=== PATIENT | female | born 1945 | race Caucasian/White ===

== ENCOUNTER → 2017-10-03 08:49 | Outpatient (CLI) | payer MEDICARE, SELFPAY ==
--- NOTE | 2017-10-03 08:58 | AAVD_ITS ---
Reason For Study: atheroscrlerosis Aorta Measurements Aorta Doppler Measurements Proximal aorta measures1.06 x 1.18cm. in cross- Peak systolic flow velocities within the proximal sectional axis. aorta measure 81.2 cm/sec. Proximal aorta measures1.06cm. in longitudinal Peak systolic flow velocities within the mid axis. aorta measure 93.0 cm/sec. Mid aorta measures1.36 x 1.41cm. in cross- Peak systolic flow velocities within the distal sectional axis. aorta measure 109 cm/sec. Mid aorta measures1.41cm. in longitudinal axis. Distal aorta measures1.38 x 1.36cm. in cross- sectional axis. Distal aorta measures1.41cm. in longitudinal axis. Left Iliac Artery Peak systolic velocity in the left iliac artery measures 188 cm/sec. Left iliac artery measures .560 x .579 cm. in the cross-sectional axis. Left iliac artery measures .554 cm. in the longitudinal axis. Right Iliac Artery Peak systolic velocity in the right iliac artery measures 403 cm/sec. Right iliac artery measures .678 cm. in the longitudinal axis. Right iliac artery measures .600 x .620 cm. in the cross-sectional axis. Procedure The exam was diagnostic. Exam performed in department. Interpretation Summary 1. Severe right common iliac stenosis. 2. Otherwise aortoiliac systemt patent. Ordering Physician: Ole Arauz Performed By: Robert Cortés RVDinah
--- NOTE | 2017-10-03 08:58 | CDU_ITS ---
Reason For Study: carotid stenosis Rt. Velocities/BP Lt. Velocities/BP Prox CCA 73.9/15.8 cm/sec. Prox CCA 108/25.1 cm/sec. Mid CCA 65.7/19.3 cm/sec. Mid CCA 98.2/25.9 cm/sec. Dist CCA 69.2/21.7 cm/sec. Dist CCA 127/37.7 cm/sec. Prox ICA 548/209 cm/sec. Prox ICA 198/52.1 cm/sec. Mid ICA 239/82.3 cm/sec. Mid ICA 244/70.7 cm/sec. Dist ICA 93.5/25.1 cm/sec. Dist ICA 109/30.9 cm/sec. Rt. ICA/CCA = 8.3. Lt. ICA/CCA = 2.5. Prox ECA 279/48.6 cm/sec. Prox ECA 103/10.2 cm/sec. Rt. Vert. 51.1/14.1 cm/sec. Lt. Vert. 57.5/15.8 cm/sec. Right Extracranial There is heterogeneous, irregular atherosclerotic plaque noted in the right common carotid artery. There is heterogeneous, irregular atherosclerotic plaque noted in the right internal carotid artery. There is heterogeneous, irregular atherosclerotic plaque noted in the right external carotid artery. Antegrade flow is noted in the right vertebral artery. Left Extracranial There is heterogeneous, irregular atherosclerotic plaque noted in the left common carotid artery. There is heterogeneous, irregular atherosclerotic plaque noted in the left internal carotid artery. There is heterogeneous, irregular atherosclerotic plaque noted in the left external carotid artery. Antegrade flow is noted in the left vertebral artery. Procedure Carotid Duplex [id number]. The exam was diagnostic. Exam performed in department. Interpretation Summary Severe (>70%) stenosis right extracranial internal carotid. Moderate (50-69%) stenosis left extracranial internal carotid. Flow within the vertebral arteries is antegrade bilaterally. Ordering Physician: Ole Arauz Performed By: Robert Cortés RVT
--- NOTE | 2017-10-03 08:58 | ADU_ITS ---
Reason For Study: atherosclerosis Right Velocities Left Velocities Common Femoral Artery, mid = 194 cm./sec. Common Femoral Artery, mid = 149 cm./sec. Profunda Femoral Artery = 187 cm./sec. Supf. Femoral Artery, prox = 101 cm./sec. Popliteal Artery, mid = 45.6 cm./sec. Supf. Femoral Artery, dist = 50.1 cm./sec. Post. Tibial Artery, prox = 22.3 cm./sec. Profunda Femoral Artery = 102 cm./sec. Post. Tibial Artery, mid = 18.8 cm./sec. Popliteal Artery, mid = 52.1 cm./sec. Post. Tibial Artery, dist = 18.8 cm./sec. Post. Tibial Artery, prox = 36.3 cm./sec. Ant. Tibial Artery, prox = 17.6 cm./sec. Post Tibial Artery, mid = 37.3 cm./sec. Ant. Tibial Artery, mid = 36.9 cm./sec. Post Tibial Artery, dist. = 32.4 cm./sec. Ant. Tibial Artery, dist = 23.5 cm./sec. Peroneal Artery, mid = 30.4 cm./sec. Unable to demonstrate flow in the SFA and PeronalPeroneal Artery,dist. = 20.6 cm./sec. A. Ant.Tibial Artery, prox = 45.2 cm./sec. Ant Tibial Artery, mid = 51.1 cm./sec. Ant. Tibial Artery, distal = 51.1 cm./sec. Unable to demonstrate flow in the mid SFA. Procedure The exam was diagnostic. Exam performed in department. Interpretation Summary 1. Bilateral SFA occlussion. 2.. Right FIELD MECHANIC biphasic flow and triphasic left FIELD MECHANIC. Ordering Physician: Ole Arauz Performed By: Robert Cortés RVT
--- NOTE | 2017-10-04 11:31 | LEAS ---
Arterial Study - Arterial Study Arterial Study: Echo record number: [id number] next Date of scan 10/03/[address] Ole Arauz History: Patient with known peripheral vascular disease with claudication. Previous endarterectomy and iliac stenting. Interpretation: Right lower extremity pulsatile flow noted at the ankle duplex showing monophasic flow both vessels with an MATI 0.52 and 0.49. Next Left lower extremity with pulsatile flow noted at the ankle duplex showing biphasic flow the posterior tibial with an MATI 0.64 monophasic flow in the dorsalis pedis with an MATI 0.57 Impression: 1. Right lower extremity moderate arterial occlusive disease with an MATI 0.52 2. Left lower extremity with moderate arterial occlusive disease with an MATI 0.64
== END ==
PROVIDERS: Family Provider Family Medicine; PCP Family Medicine; Visit Provider Surgery Vascular Surgery
DX: I70.213 Atherosclerosis of native arteries of extremities with intermittent claudication, bilateral legs (principal); I74.09 Other arterial embolism and thrombosis of abdominal aorta; I65.23 Occlusion and stenosis of bilateral carotid arteries; M79.89 Other specified soft tissue disorders; E66.9 Obesity, unspecified; Z87.891 Personal history of nicotine dependence; I25.2 Old myocardial infarction; I10 Essential (primary) hypertension; E07.9 Disorder of thyroid, unspecified; M19.90 Unspecified osteoarthritis, unspecified site
CPT/HCPCS: 93880; 93922; 93925; 93978

== ENCOUNTER → 2017-10-16 12:38 | Outpatient (CLI) | payer MEDICARE, SELFPAY ==
--- NOTE | 2017-10-16 12:43 | CT_ITS ---
STUDY: CTA NECK WITH CONTRAST REASON FOR EXAM: Female, 72 years old. Carotid stenosis follow-up. RADIATION DOSAGE (If Supplied By Facility): CTDIvol = ( ) mGy, DLP = ( ) mGycm TECHNIQUE: CT angiography with multi-detector data acquisition was performed from the aortic arch to the skull base following intravenous administration of 100 ml of Isovue 370 contrast. MIP images were reconstructed from the axial data set. Post-processing of the angiographic images was performed, with multiplanar reformation and 3D reconstruction. Individualized dose optimization techniques were used for this CT. COMPARISON: CTA carotid arteries September 09, 2016. FINDINGS: There is a complex 1.8 x 1.45 x 1.3 cm heterogeneous lesion with eccentric focal calcifications in the inferior left lobe of the thyroid gland. AORTIC ARCH: There is atherosclerotic calcific plaque formation of the aortic arch and great vessels arising from the aortic arch, without a hemodynamically significant stenosis. There is a normal origin of the brachiocephalic, left common carotid, and left subclavian arteries. There is a calcification also seen at the ostium of the right subclavian artery. RIGHT CAROTID ARTERIES: There is atherosclerotic plaque formation of the common carotid artery, but without a hemodynamically significant stenosis. There is extensive atherosclerotic plaque formation with severe narrowing of the right carotid bulb with a hemodynamically significant stenosis. There is extensive atherosclerotic plaque formation of the origin of the right internal carotid artery with an estimated stenosis of greater than 70%. Normal visualized cervical portion of the right internal carotid artery. There is noncalcified atherosclerotic plaque formation of the origin of the right external carotid artery with an estimated stenosis of greater than 70%. LEFT CAROTID ARTERIES: There is atherosclerotic plaque formation of the common carotid artery, but without a hemodynamically significant stenosis. There is moderate atherosclerotic plaque formation with moderate narrowing of the carotid bulb. There is moderate atherosclerotic plaque formation of the origin of the left internal carotid artery with an estimated stenosis of 50-69% stenosis. There is mild tortuous elongation of the cervical portion of the left internal carotid artery. There is mixed atherosclerotic plaque formation of the origin of the left external carotid artery with an estimated stenosis of greater than 70%. VERTEBRAL ARTERIES: Mild ostial atherosclerotic narrowing of the right vertebral artery. There is moderate tortuosity of the proximal left vertebral artery with some kinking, but no significant stenosis. The right vertebral artery is smaller caliber than the left, but the cervical segments of these vessels are otherwise widely patent CT/CTA Neck W/WO Contrast IMPRESSION: 1. Greater than 70% diameter calcific atherosclerotic stenosis of the right internal carotid artery origin is unchanged. 2. 50-69% diameter calcific atherosclerotic stenosis of the left internal carotid artery origin also unchanged. 3. No significant vertebral artery stenosis. Electronically Signed: Moiz Londono MD at 16:17 EDT , Service support ,
== END ==
PROVIDERS: Family Provider Family Medicine; PCP Family Medicine; Visit Provider Surgery Vascular Surgery
DX: I65.23 Occlusion and stenosis of bilateral carotid arteries (principal)
CPT/HCPCS: 70498; Q9967

== ENCOUNTER → 2018-11-22 | Outpatient (CLI) | payer MEDICARE, SELFPAY ==
--- NOTE | 2018-11-22 09:52 | AAVD_ITS ---
Reason For Study: athersclerosis Aorta Measurements Aorta Doppler Measurements Proximal aorta measures1.16 x 1.24cm. in cross- Peak systolic flow velocities within the proximal sectional axis. aorta measure 84.2 cm/sec. Proximal aorta measures1.18cm. in longitudinal Peak systolic flow velocities within the mid aorta axis. measure 62.2 cm/sec. Mid aorta measures1.77 x 1.83cm. in cross- Peak systolic flow velocities within the distal sectional axis. aorta measure 56.7 cm/sec. Mid aorta measures1.61cm. in longitudinal axis. Distal aorta measures1.59 x 1.44cm. in cross- sectional axis. Distal aorta measures1.36cm. in longitudinal axis. Left Iliac Artery Left iliac artery measures .57 x .52 cm. in the cross-sectional axis. Left iliac artery measures .53 cm. in the longitudinal axis. Peak systolic velocity in the left iliac artery measures 111.1 cm/sec. Right Iliac Artery Right iliac artery measures .44 x .42 cm. in the cross-sectional axis. Right iliac artery measures .44 cm. in the longitudinal axis. Peak systolic velocity in the right iliac artery measures 347.8 cm/sec. Interpretation Summary 1. No aneurysm. 2. Right LILIYA severe stenosis. Ordering Physician: Ole Arauz Performed By: Robert Cortés, RVT
--- NOTE | 2018-11-22 09:52 | CDU_ITS ---
Reason For Study: carotid stenosis Rt. Velocities/BP Lt. Velocities/BP Prox CCA 60.1/13.4 cm/sec. Prox CCA 109.4/21.7 cm/sec. Mid CCA 65.0/15.8 cm/sec. Mid CCA 100.3/23.6 cm/sec. Dist CCA 55.1/14.6 cm/sec. Dist CCA 98.4/21.7 cm/sec. Prox ICA 463/182.9 cm/sec. Prox ICA 183.5/43.0 cm/sec. Mid ICA 218.7/47.4 cm/sec. Mid ICA 125.3/30.3 cm/sec. Dist ICA 105.5/31.2 cm/sec. Dist ICA 130.8/32.1 cm/sec. Rt. ICA/CCA = 7.1. Lt. ICA/CCA = 1.8. Prox ECA 347.5/33.7 cm/sec. Prox ECA 156.3/12.0 cm/sec. Rt. Vert. 50.7/10.1 cm/sec. Lt. Vert. 74.2/17.5 cm/sec. Right Extracranial There is heterogeneous, irregular atherosclerotic plaque noted in the right common carotid artery. There is heterogeneous, irregular atherosclerotic plaque noted in the right internal carotid artery. There is heterogeneous, irregular atherosclerotic plaque noted in the right external carotid artery. Antegrade flow is noted in the right vertebral artery. Left Extracranial There is heterogeneous, irregular atherosclerotic plaque noted in the left common carotid artery. There is heterogeneous, irregular atherosclerotic plaque noted in the left internal carotid artery. There is heterogeneous, irregular atherosclerotic plaque noted in the left external carotid artery. Antegrade flow is noted in the left vertebral artery. Procedure Carotid Duplex [id number]. The exam was diagnostic. Exam performed in department. Interpretation Summary Severe (>70%) stenosis right extracranial internal carotid. Moderate (50-69%) stenosis left extracranial internal carotid. Flow within the vertebral arteries is antegrade bilaterally. Ordering Physician: Ole Arauz Performed By: Robert Cortés RVT
--- NOTE | 2018-11-22 10:06 | ART_ITS ---
Reason For Study: atherosclerosis Left Segmental Pressures Left brachial= 180mmHg. Left posterior tibial artery = 128mmHg. Left dorsalis pedis artery = 114mmHg. The left posterior tibial artery waveforms are biphasic. The left dorsalis pedis waveforms are monophasic. Right Segmental Pressures Right brachial= 189mmHg. Right posterior tibial artery = 125mmHg. Right dorsalis pedis artery = 106mmHg. The right dorsalis pedis waveforms are monophasic. The right posterior tibial artery waveforms are monophasic. Indices The right ankle brachial index by the dorsalis pedis is .56. The right ankle brachial index by the posterior tibial artery is .66. The left ankle brachial index by the dorsalis pedis is .60. The left ankle brachial index by the posterior tibial artery is .68. Interpretation Summary 1. bilateral moderate occlussive disease with monophasic flow and 0.66/0.68. Ordering Physician: Ole Arauz Performed By: ANALY MAR [facility]
== END | disposition home or self-care (01) ==
LOC: CVS 09:46
PROVIDERS: Family Provider Family Medicine; PCP Family Medicine; Referring Provider Surgery Vascular Surgery; Visit Provider Surgery Vascular Surgery
DX: I65.23 Occlusion and stenosis of bilateral carotid arteries (principal); I74.09 Other arterial embolism and thrombosis of abdominal aorta; M79.89 Other specified soft tissue disorders; I70.213 Atherosclerosis of native arteries of extremities with intermittent claudication, bilateral legs; E66.9 Obesity, unspecified; Z87.891 Personal history of nicotine dependence; I25.2 Old myocardial infarction; I10 Essential (primary) hypertension; E07.9 Disorder of thyroid, unspecified; M19.90 Unspecified osteoarthritis, unspecified site
CPT/HCPCS: 93880; 93922; 93978

== ENCOUNTER → 2019-01-04 | Outpatient (CLI) | payer MEDICARE, SELFPAY ==
--- NOTE | 2019-01-04 12:45 | CT_ITS ---
STUDY: CTA NECK WITH CONTRAST REASON FOR EXAM: Female, 73 years old. History of carotid stenosis bilaterally. 4 day history of cough. RADIATION DOSAGE (If Supplied By Facility): CTDIvol = ( 20.68 ) mGy, DLP = ( 666.92 ) mGycm TECHNIQUE: CT angiography with multi-detector data acquisition was performed from the aortic arch to the skull base following intravenous administration of 100mL IV Isovue 370. MIP images were reconstructed from the axial data set. Post-processing of the angiographic images was performed, with multiplanar reformation and 3D reconstruction. Individualized dose optimization techniques were used for this CT. COMPARISON: Comparison is made with prior study dated October 16, 2017. FINDINGS: Inhomogeneous enlargement of the left lobe of the thyroid with cystic changes as well as linear calcifications. AORTIC ARCH: There is atherosclerotic calcific plaque formation of the aortic arch and great vessels arising from the aortic arch, without a hemodynamically significant stenosis. There is a normal origin of the brachiocephalic, left common carotid, and left subclavian arteries. Atherosclerotic plaque formation at the origin of the brachiocephalic artery and left subclavian artery. RIGHT CAROTID ARTERIES: There is atherosclerotic plaque formation of the common carotid artery, but without a hemodynamically significant stenosis. There is moderate atherosclerotic plaque formation with moderate narrowing of the right carotid bulb. There is severe atherosclerotic plaque formation of the origin of the right internal carotid artery with a near complete occlusion. Normal visualized cervical portion of the right internal carotid artery. Normal origin of the right external carotid artery (ECA). LEFT CAROTID ARTERIES: There is atherosclerotic plaque formation of the common carotid artery, but without a hemodynamically significant stenosis. There is moderate atherosclerotic plaque formation with moderate narrowing of the carotid bulb. There is extensive atherosclerotic plaque formation of the origin of the left internal carotid artery with an estimated stenosis of greater than 70%. Normal visualized cervical portion of the left internal carotid artery. Normal origin of the left external carotid artery (ECA). VERTEBRAL ARTERIES: Stenotic plaque formation at the origin of the right vertebral artery. Incidental note is made of a right pleural effusion with right upper lobe consolidation. CT/CTA Neck W/WO Contrast IMPRESSION: High-grade bilateral internal carotid artery stenosis worse on the right side. This has progressed as compared to prior study. Electronically Signed: Claus Goode, at 14:55 EDT , Service support ,
== END | disposition home or self-care (01) ==
LOC: CT 12:44
PROVIDERS: Family Provider Family Medicine; PCP Family Medicine; Referring Provider Surgery Vascular Surgery; Visit Provider Surgery Vascular Surgery
DX: I65.23 Occlusion and stenosis of bilateral carotid arteries (principal)
CPT/HCPCS: 70498; Q9967

== ENCOUNTER → 2019-02-01 | Outpatient (CLI) | payer MEDICARE, SELFPAY ==
[2019-01-14 11:16] VITALS: BMI 33.4
--- NOTE | 2019-02-01 06:50 | ECHOCS_ITS ---
Reason For Study: CAD/ASHD Procedure This was a 2D Doppler, Color Flow transthoracic echocardiogram. The study was technically difficult. Due to body habitus. Contrast injection was performed. Exam performed in department. PT unable to tolerate probe pressure for subcostal views. Left Ventricle Normal LV size. Left ventricular systolic function is normal. The estimated ejection fraction is 65 %. Diastolic function is indeterminate. No regional wall motion abnormalities noted. Right Ventricle Normal RV size. Normal systolic function. Atria The left atrium is mildly enlarged. Normal right atrium. No doppler evidence for ASD. Mitral Valve There is mild to moderate mitral annular calcification. Extension of the mitral annular calcification onto the posterior mitral valve leaflet. Mild focal mitral valve calcification of the anterior leaflet. Mild (1+) mitral valve insufficiency. Tricuspid Valve Normal tricuspid valve. Trivial tricuspid valve insufficiency. Right ventricular systolic pressure estimated to be 26 mmHg. Aortic Valve Trisinus/trileaflet aortic valve. Moderate focal aortic valve calcification. Pulmonic Valve The pulmonic valve is not well visualized. Great Vessels Normal sized aortic root. Calcified aortic root. Pericardium/Pleural No pericardial effusion. Medication Diluted definity 2.0ml given slow IV push to enhance endocardial definition. MMode/2D Measurements & Calculations LVIDd: 5.1 cm IVSd: 0.97 cm Ao root diam: 3.4 cm LVIDs: 3.5 cm LVPWd: 1.0 cm RVDd: 3.4 cm FS: 30.8 % LAV(MOD-bp): 60.8 ml LA A4 area: 21.2 cm2 LA dimension(2D): 4.4 cm LAV(MOD-bp) Indexed: 32.1 ml/m2 LAV(MOD-sp2): 62.0 ml LAV(MOD-sp4): 62.0 ml RA A4 area: 18.7 cm2 Time Measurements MV dec time: 0.26 sec Doppler Measurements & Calculations MV E max maycol: 95.5 cm/sec Lat Peak E' Maycol: 7.3 cm/sec Med Peak E' Maycol: 3.7 cm/sec MV A max maycol: 107.9 cm/sec E/E' lat: 13.1 E/E' med: 25.5 MV E/A: 0.89 Ao V2 max: 143.6 cm/sec LV V1 max: 113.0 cm/sec PA V2 max: 120.2 cm/sec Ao max P.3 mmHg LV V1 max P.1 mmHg TR max maycol: 214.8 cm/sec TR max P.1 mmHg Interpretation Summary The study was technically difficult. Contrast injection was performed. Left ventricular systolic function is normal. The estimated ejection fraction is 65 %. The left atrium is mildly enlarged. There is mild to moderate mitral annular calcification. Extension of the mitral annular calcification onto the posterior mitral valve leaflet. Mild focal mitral valve calcification of the anterior leaflet. Mild (1+) mitral valve insufficiency. Trivial tricuspid valve insufficiency. Moderate focal aortic valve calcification. Calcified aortic root. Right ventricular systolic pressure estimated to be 26 mmHg. Diastolic function is indeterminate. Ordering Physician: Davy Bennett Referring Physician: Juan Agee Performed By: Marce Camarena, PILLO, RVT
--- NOTE | 2019-02-01 10:39 | STRESSREP ---
Stress Test Report Date: 02-01-19 Procedure: Pharmacologic stress nuclear imaging study Indications: CAD; CABG; paroxysmal atrial fibrillation; abnormal ECG; preoperative cardiovascular evaluation Consent: Per the patient Procedure: The patient underwent pharmacologic (Regadenoson) evaluation with a peak heart rate of 74 beats per minute (49 %predicted maximal heart rate) and a peak blood pressure of 158/88 mmHg. The baseline ECG demonstrated sinus rhythm; right bundle branch block pattern. The peak pharmacologic ECG demonstrated continued right bundle branch block pattern. There were no cardiac dysrhythmias pretest, during pharmacologic infusion, or recovery. There was no complaint of chest discomfort during pharmacologic infusion or recovery. The examination was discontinued secondary to completion of protocol. Impression: 1. Pharmacologic (Regadenoson) evaluation 2. Peak pharmacologic ECG with continued right bundle branch block pattern. 3. There were no cardiac dysrhythmias pretest, during pharmacologic infusion, or recovery. 4. Nuclear images pending Myocardial perfusion imaging study: Technique: The patient was injected with 14.5 millicuries of technetium 99m Cardiolite and subsequently rest SPECT Cardiolite nuclear imaging was obtained in the horizontal long, vertical long, and short axis views. The patient underwent pharmacologic (Regadenoson) evaluation with a peak heart rate of 74 beats per minute (49 % percent predicted maximal heart rate) and a peak blood pressure of 158/88 mmHg. The patient was injected with 44.2 millicuries of technetium 99m Cardiolite and subsequently stress SPECT Cardiolite nuclear imaging was obtained in the horizontal long, vertical long, and short axis views. A gated Cardiolite study at peak stress was obtained. Interpretation: Rest and stress SPECT Cardiolite nuclear imaging status post realignment, normalization, and attenuation correction demonstrate at rest relative uniform tracer uptake and status post stress a small area of diminished tracer uptake in the inferior apical areas. There are similar type findings on the stress Parmet images. There is end systolic thickening and brightening. The gated Cardiolite study demonstrates myocardial thickening and inward wall motion. The reported LVEF is 79 %. Impression: 1. Rest and stress SPECT cardiac nuclear imaging demonstrate myocardial perfusion changes appearing compatible with an area of stress-induced myocardial ischemia involving portions of the inferior apical segments. 2. The gated Cardiolite study reports an LVEF of 79 %. This note was generated with Ganip[employer] software. It may contain incorrect words, spelling, and punctuation that were not noted in checking the note before signing.
== END | disposition home or self-care (01) ==
LOC: CVS 06:49
PROVIDERS: Family Provider Family Medicine; PCP Family Medicine; Referring Provider Internal Medicine Cardiovascular Disease; Visit Provider Internal Medicine Cardiovascular Disease
DX: I25.10 Atherosclerotic heart disease of native coronary artery without angina pectoris (principal)
CPT/HCPCS: 78452; 93017; 93306; A9500; Q9957; A4216; C8929; J2785

== ENCOUNTER 2019-02-06 12:09 | Inpatient (IN) | payer MEDICARE, SELFPAY ==
[2019-01-14 11:16] VITALS: BMI 33.4
[2019-02-06] VITALS (14 sets, daily range): BP systolic 119–174; BP diastolic 50–76; PULSE 73–104; RESP 16–22; TEMP 37–38.7; O2SAT 91–98; BMI 34.7; BMI 33.7
--- NOTE | 2019-02-06 12:29 | RAD_ITS ---
STUDY: X-RAY CHEST REASON FOR EXAM: Female, 73 years old. Shortness of breath. TECHNIQUE: AP and lateral views of the chest. COMPARISON: Comparison is made with prior study dated April 21, 2016. FINDINGS: EKG electrodes are seen. Vascular congestion and mild CHF. Focal atelectasis and/or infiltrate in the right upper lobe abutting the right minor fissure. Stable calcified granuloma in the right lower lobe. Sternal cerclage wires and vascular clips are present from a prior sternotomy and coronary artery bypass graft procedure (CABG). Normal mediastinum and elva. Normal visualized pulmonary arteries. There is atherosclerotic calcification of the aortic arch with tortuosity. There are diffuse degenerative changes of the visualized thoracic spine. Normal visualized ribs, clavicles, and shoulders. There is no demonstrated abnormality of the visualized soft tissue structures of the upper abdomen. RAD/Chest PA and Lateral IMPRESSION: Thoracic congestion and mild CHF with a superimposed infiltrate and/or atelectasis in the right upper lobe. Electronically Signed: Claus Goode, at 14:16 EDT , Service support ,
--- NOTE | 2019-02-06 12:29 | EKG12_ITS ---
Test Reason : SOB Blood Pressure : / mmHG Vent. Rate : 099 BPM Atrial Rate : 099 BPM P-R Int : 172 ms QRS Dur : 134 ms QT Int : 394 ms P-R-T Axes : 065 108 034 degrees QTc Int : 505 ms Sinus rhythm with occasional Premature ventricular complexes Right bundle branch block Possible Inferior infarct (cited on or before 18-APR-2014) Abnormal ECG Confirmed by TIRSO DENNY, CARLO ([id number]), web content editor ANAMARIA SMITH ([id number]) on 02/08/2019 12:32:02 PM Referred By: LORE Confirmed By:HILARIO CHAHAL MD
[2019-02-06] MEDS: Albuterol 2.5 MG/3 ML VIAL.NEB. INHALATION ×2 (12:46)
[2019-02-06] MEDS: Ipratropium/Albuterol Sulfate 3 ML AMPUL.NEB INHALATION ×2 (12:46→19:30)
[2019-02-06 12:58] LABS: International Normalized Ratio 1.1; Prothrombin Time (Protime)PT. 14.4 SECONDS (11.7-14.9)
[2019-02-06 12:59] LABS: Partial Thromboplast Time 31.7 Seconds (24.1-36.2)
[2019-02-06 13:00] LABS: ALB/GLOB Ratio 0.8 RATIO (0.9-2.4); AST(SGOT) 49 U/L (15-37); Alanine Aminotransfer ALT/SGPT 39 U/L (13-56); Albumin, Serum 3.9 g/dL (3.2-5.0); Alkaline Phosphatase 186 U/L (45-117); Anion Gap 7 (5-15); BUN 11 mg/dL (7-18); BUN/Creat Ratio 12.6 RATIO (10-20); Calcium,Total 9.1 mg/dL (8.5-10.1); Chloride 94 mmol/L (98-107); Creatinine, Serum 0.87 mg/dL (0.55-1.02); EST Glomerular Filtration Rate 68 mL/min (>60); Est Glom Filt Rate - Afr Amer 83 mL/min (>60); Estimated Creatinine Clearance 53.37 ml/min; Globulin 4.8 g/dL (2.2-4.2); Glucose 172 mg/dL (74-106); Potassium 3.2 mmol/L (3.5-5.1); Protein, Total 8.7 g/dL (6.4-8.2); Sodium Level 136 mmol/L (136-145)
--- NOTE | 2019-02-06 13:03 | ED.RN ---
LAB CALLED LACTIC OF 3.0. DR CAREY AWARE
[2019-02-06] MEDS: 0.9% Normal Saline 1,000 ML 999 ML IV ×2 (13:08→14:54)
[2019-02-06] MEDS: Acetaminophen 500 MG Tablet 1000 MG PO (13:08)
[2019-02-06 13:13] LABS: Absolute Lymphocyte Count 0.62 X10^3/ul (0.83-4.51); Absolute Neutrophil Count 21.5 X10^3/uL (2.0-7.7); Basophil# 0.02 X10^3/uL; Basophil% 0.1 % (0-1); Eosinophil# 0.08 X10^3/uL; Eosinophils% 0.3 % (0-5); Hematocrit 38.1 % (37-47); Hemoglobin 11.7 g/dl (12.0-15.0); Lymphocyte # 0.62 X10^3/ul (4.0); Lymphocyte % 2.7 % (19-41); Mean Corp Hgb Conc 30.7 g/gl (32-36); Mean Corpuscular Hgb 24.2 pg (27.0-32.0); Mean Corpuscular Volume 78.7 fL (81-99); Mean Platelet Vol. 10.1 fl (6.2-12.0); Monocyte# 1.05 X10^3/uL; Monocyte% 4.5 % (0-10); Neutrophil # 21.53 X10^3/uL (2.7-7.7); Neutrophil % 92.1 % (47-70); Platelet Count 265 K/mm3 (150-450); RBC Distribution Width CV 16.2 % (11.6-14.6); RBC Distribution Width SD 46.6 fl (35.1-43.9); Red Blood Count 4.84 M/mm3 (4.2-5.4); White Blood Count 23.4 K/mm3 (4.4-11.0)
[2019-02-06 13:14] LABS: Differential Indicated SCAN CRITERIA MET; POSITIVE COUNT NO; POSITIVE DIFFERENTIAL YES; POSITIVE MORPHOLOGY NO
[2019-02-06 13:40] LABS: Differential Comment SCANNED
--- NOTE | 2019-02-06 14:51 | NURSING ---
DR GUERRERO CAREY
--- NOTE | 2019-02-06 14:55 | ED.VISSUMM ---
- ER Visit Summary Date of Service: 02/06/19 Chief Complaint: Cough and shortness of breath History of Present Illness: The patient is a 73 F who states that she is developed cough and shortness of breath. Today before lunch she went to get up and felt very shaky and dizzy. She states that she felt like passing out. She notes the cough is occasionally productive. She has a history of long-term tobacco use has home oxygen that she sometimes wears and sometimes does not. Also history of coronary artery disease hypercholesterolemia CHF peripheral vascular disease lupus hypothyroidism and prior DVT. She currently resides at [facility] living. Physical Examination: Febrile 101.7 heart rate of 104 respirations are 26 pulse ox is 95% on 4 L blood pressure 165/68 Gen: Well-nourished well-developed Head: Normocephalic atraumatic Eyes: Perrl EOMI ENT: TMs clear no rhinorrhea moist mucous membranes Neck: Supple no lymphadenopathy no JVD nontender CVS: Regular rate tachycardic rhythm no murmurs normal S1-S2 Respiratory: No distress rhonchorous breath sounds on the right faint wheezing on left chest nontender Abdomen: Soft nontender nondistended normal bowel sounds no masses Back: Nontender Extremity: Nontender no edema Skin: Normal color no rash Neuro: alert orientated ?3 CN II-XII intact normal strength sensation Psych: Normal affect normal mood Test Results: EKG showed a sinus rhythm with a right bundle branch block with occasional PVC. White count elevated at 23 lactic acid is 3. Chest x-ray shows right upper lobe infiltrate. Emergency Department Course and Treatment: Patient received IV fluids, Tylenol, aerosols, and later Rocephin and azithromycin. She is feeling better. Her blood pressure has been stable. Our plan is admission to the hospital Impression: 1. Pneumonia 2. Sepsis This note was generated with [employer] dictation software. It may contain incorrect words, spelling, and punctuation that were not noted in review of the chart prior to signing ED Disposition - Plan for ED Patient: Referrals: Juan Agee MD [Primary Care Provider] -
[2019-02-06] MEDS: Ceftriaxone 1 GM/50 ML BAG IV (14:56)
--- NOTE | 2019-02-06 14:58 | NURSING ---
122 PNEUMONIA SEPSIS ASHELFAH
[2019-02-06] MEDS: 0.9% Normal Saline 1,000 ML 150 ML IV (15:00)
--- NOTE | 2019-02-06 15:12 | PCM.HP.STD ---
Problem List (1) Essential hypertension Status: Chronic (2) Chronic diastolic (congestive) heart failure Status: Chronic (3) Paroxysmal atrial fibrillation Status: Chronic (4) Atherosclerotic heart disease of [place] coronary artery without angina pectoris Status: Chronic Qualifiers: (5) Hypothyroidism Status: Chronic (6) Hyperlipidemia Status: Chronic Qualifiers: (7) History of coronary artery bypass graft Status: Chronic Comment: CABG x4- ELDRIDGE to LAD, SVG to OM, SVG to PDA 12/11 (8) PVD (peripheral vascular disease) Status: Chronic (9) Spinal stenosis Status: Chronic History of Present Illness Date of Admission: 02/06/19 Chief Complaint: Weakness, chills, cough and shortness of breath. The patient is a 73 year old F with multiple medical comorbidities as mentioned above presented to the emergency room because of weakness, chills, cough and shortness of breath. This morning, patient took a shower, felt very weak and after she came out of the shower, she felt cold, having chills associated with weakness and fatigue as well as cough and shortness of breath. She complained of cough that has been going on for around 4 weeks, persistent mild cough, productive with moderate amount of clear to white sputum, associated with exertional shortness of breath and without aggravating or relieving factors. She denies fever or chills. She stated that at the assisted living, many people are having cough over the last several weeks and they have been walking around the facility and she thinks that she caught an infection from them. She does use oxygen at the assisted living and normally she uses 4 L of oxygen and she has been the same. She denies chest pain, palpitation, dizziness or lightheadedness. She had a history of CAD status post CABG, has been on aspirin, Plavix, beta-blockers and statins and she had recent stress test in February 01, 2019 that was abnormal and she is supposed to see Dr. Bennett today for follow-up. She has a history of chronic respiratory failure which is probably due to chronic diastolic CHF as well as suspected COPD and she has been on oxygen at 4 L. She had a history of paroxysmal atrial fibrillation, has been on Coreg and digoxin for rate control as well as Xarelto for anticoagulation. In the emergency department, patient was febrile, heart rate almost more than 90, blood pressure was stable, pulse ox was 97% on 4 L. Routine blood work was remarkable for significant leukocytosis with neutrophilia, potassium of 3.2. Lactic acid was 3. EKG revealed sinus rhythm with PVCs, right bundle branch block which is chronic, no acute changes. Troponin is negative. Chest x-ray revealed right upper lobe infiltrate and possible mild degree of pulmonary vascular congestion. She is being admitted for right upper lobe community-acquired pneumonia with severe sepsis. Past Medical History Past Medical History (Chronic Problems): Chronic Problems (Last Updated 02/06/19 @ 15:11 by Rich Roman MD) Abnormal stress test (Chronic) Essential hypertension (Chronic) Chronic diastolic (congestive) heart failure (Chronic) Paroxysmal atrial fibrillation (Chronic) Atherosclerotic heart disease of [place] coronary artery without angina pectoris (Chronic) Peripheral neuropathy (Chronic) Hypothyroidism (Chronic) Hyperlipidemia (Chronic) SLE (systemic lupus erythematosus) (Chronic) 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 (Chronic ~11/2013) CABG x4- ELDRIDGE to LAD, SVG to OM, SVG to PDA 12/11 History of rheumatic fever (Chronic) PVD (peripheral vascular disease) (Chronic) Spinal stenosis (Chronic) Medical History: Medical History (Last Updated 02/06/19 @ 15:11 by Rich Roman MD) Essential hypertension (Chronic) I10 Chronic diastolic (congestive) heart failure (Chronic) I50.32 Paroxysmal atrial fibrillation (Chronic) I48.0 Atherosclerotic heart disease of [place] coronary artery without angina pectoris (Chronic) I25.10 Peripheral neuropathy (Chronic) G62.9 Hypothyroidism (Chronic) E03.9 Hyperlipidemia (Chronic) E78.5 SLE (systemic lupus erythematosus) (Chronic) M32.9 Steroid dependence (Chronic) [id number] PVD (peripheral vascular disease) (Chronic) I73.9 Spinal stenosis (Chronic) M48.00 GERD (gastroesophageal reflux disease) K21.9 History of DVT (deep vein thrombosis) Z86.718 Allergies adhesive tape Allergy (Unknown, Verified 02/06/19 12:11) Unknown metoprolol [From Toprol XL] Allergy (Unknown, Verified 02/06/19 12:11) Unknown polymyxin B Allergy (Unknown, Verified 02/06/19 12:11) Unknown Sulfa (Sulfonamide Antibiotics) Allergy (Unknown, Verified 02/06/19 12:11) Swelling latex Allergy (Verified 02/06/19 12:11) Unknown Home Medications: Ambulatory Orders Medication Instructions Recorded Amitriptyline HCl [Elavil] 100 mg PO QHS 11/26/13 Atorvastatin Calcium [Lipitor] 20 mg PO QHS 04/18/14 Carvedilol [Coreg (Beta Jere)] 25 mg PO BID 04/18/14 Clopidogrel Bisulfate [Plavix] 75 mg PO DAILY 04/18/14 Aspirin [Adult Low Dose Aspirin EC] 81 mg PO DAILY 09/09/15 Potassium Chloride [K-Dur] 20 meq PO BID 12/18/15 Rivaroxaban [Xarelto] 20 mg PO DAILY 02/19/16 oxycodone-acetaminophen 7.5 mg-325 1 tab PO Q8H PRN tab 04/20/18 mg tablet pantoprazole 40 mg tablet,delayed 40 mg PO BREAKFAST tab 04/20/18 release amlodipine 10 mg tablet 10 mg PO DAILY 01/14/19 cholecalciferol (vitamin D3) 50,000 unit PO TUTH cap 01/14/19 50,000 unit capsule gabapentin 600 mg tablet 600 mg PO TIDCM tab 01/14/19 sucralfate 1 gram tablet 1 g PO Q6H tab 01/14/19 ALPRAZolam [Xanax] 1 mg PO TID 02/06/19 Digoxin [Lanoxin] 125 mcg PO DAILY 02/06/19 Duloxetine HCl 60 mg PO BID 02/06/19 Furosemide 40 mg PO DAILY 02/06/19 Surgical History: Surgical History (Last Updated 02/06/19 @ 14:52 by Rich Roman MD) History of coronary artery bypass graft (Chronic) Onset Date: ~11/2013 CABG x4- ELDRIDGE to LAD, SVG to OM, SVG to PDA 12/11 History of total hysterectomy Z90.710 S/P insertion of iliac artery stent Z95.828 Bilateral Surgical History: coronary bypass surgery - Coronary artery bypass graft ?4 vessels in 2013, hysterectomy - For endometriosis, - - Multiple vascular procedures on her legs Psychiatric History: Anxiety, Depression [employer] History: endometriosis Lives: - - Assisted living. Smoking Status: Current every day smoker Tobacco Use: Cigarettes Alcohol: None Drugs: None - *Family History Maternal Family History: Family History (Last Reviewed 01/14/19 @ 11:22 by Johanny Smith) Father CVA (cerebral vascular accident) Hypertension Brother CVA (cerebral vascular accident) History Items: - - Hypertension, coronary artery disease, cerebrovascular disease with CVAs and diabetes mellitus and a niece Review of Systems Constitutional: Reports: Chills, Weakness, Fatigue. Denies: Anorexia, Fever Eyes: Denies: Blurred vision, Double vision, Drainage, Redness HEENT: Denies: Difficulty Hearing, Ear Pain, Eye Pain, Nasal Congestion, Sore Throat Cardiovascular: Denies: Chest Pain, Chest Pressure, Edema, Heaviness, Light Headedness, Palpitations, Syncope Respiratory: Reports: Cough, Shortness of Breath, Sputum production. Denies: Pleuritic Pain, Wheezing Gastrointestinal: Denies: Abdominal Pain, Constipation, Diarrhea, Nausea, Vomiting Genitourinary: Denies: Dysuria, Frequency, Hematuria Musculoskeletal: Denies: Arm Pain, Back Pain, Foot Pain Skin: Denies: Dryness, Rash Neurological: Denies: Balance problems, Double vision, Change in Speech, Slurred speech, Confusion, Focal weakness, Headaches, Incoordination Psychiatric: Denies: Anxiety, Depression Endocrine: Denies: Change in Body Habitus, Polydipsia, Polyuria VTE Information - Inpt Only VTE Present on Admission: No VTE Mechan Device Prophylaxis: None VTE Pharm Prophylaxis ordered?: No - Physical Exam General: Alert, Oriented x3, Cooperative, - - Minimally short of breath. HEENT: Atraumatic, PERRLA, EOMI, Normocephalic Oral: Moist Mucosa, No Gingival or Mucosal Lesions/ Ulcerations Neck: Supple, No JVD, Negative Carotid Bruits, Trachea Midline, Thyroid Normal Size and Texture Lungs: No wheeze, Diminished, Rales, Rhonchi, Short of Breath, - - Decreased breath sounds bilaterally, more at the bases, scattered rhonchi. Cardiovascular: Regular rate, Regular Rhythm, Normal S1, Normal S2, PMI Normal Abdomen: Bowel Sounds Present, Soft, Non Tender, Non-Distended, No Hepato-splenomegaly, Obese Extremities: No clubbing, No cyanosis, Edema - Trace edema. Skin: No rashes, No breakdown Lymphatic: No Cervical, Supraclavicular, or Inguinal Adenopathy Neurological: Cranial nerves II-XII grossly intact, Motor Exam 5/5 strength throughout Psych/Mental Status: Normal Affect, Appropriate, Alert and oriented to time, place, person, mood and affect Vital Signs Temp Pulse Resp BP Pulse Ox 101.2 F H 92 20 H 143/52 H 91 02/06/19 14:52 02/06/19 14:53 02/06/19 14:53 02/06/19 14:53 02/06/19 14:53 Oxygen Flow Rate (L/min) 2 Oxygen Delivery Method Nasal Cannula Weight: 208 lb 12.444 oz Body Mass Index (BMI) 34.7 Laboratory Tests Past 24 Hrs 02/06/19 02/06/19 02/06/19 12:20 12:20 12:20 WBC 23.4 H RBC 4.84 Hgb 11.7 L Hct 38.1 MCV 78.7 L MCH 24.2 L MCHC 30.7 L RDW 16.2 H RDW Differential 46.6 H Plt Count 265 MPV 10.1 Immature Gran % (Auto) 0.300 Neut % (Auto) 92.1 H Lymph % (Auto) 2.7 L [place] % (Auto) 4.5 Eos % (Auto) 0.3 Baso % (Auto) 0.1 Absolute Neuts (auto) 21.5 H Absolute Lymphs (auto) 0.62 L Total Counted Not Reportable Differential Comment SCANNED PT 14.4 INR 1.1 APTT 31.7 Sodium 136 Potassium 3.2 L Chloride 94 L Carbon Dioxide 35.0 H Anion Gap 7 BUN 11 Creatinine 0.87 Estim Creat Clear Calc 53.37 Est GFR (MDRD) Af Amer 83 Est GFR (MDRD) Non-Af 68 BUN/Creatinine Ratio 12.6 Glucose 172 H Lactic Acid Calcium 9.1 Total Bilirubin 0.70 AST 49 H ALT 39 Alkaline Phosphatase 186 H Troponin I < 0.015 Total Protein 8.7 H Albumin 3.9 Globulin 4.8 H Albumin/Globulin Ratio 0.8 L 02/06/19 12:20 WBC RBC Hgb Hct MCV MCH MCHC RDW RDW Differential Plt Count MPV Immature Gran % (Auto) Neut % (Auto) Lymph % (Auto) [place] % (Auto) Eos % (Auto) Baso % (Auto) Absolute Neuts (auto) Absolute Lymphs (auto) Total Counted Differential Comment PT INR APTT Sodium Potassium Chloride Carbon Dioxide Anion Gap BUN Creatinine Estim Creat Clear Calc Est GFR (MDRD) Af Amer Est GFR (MDRD) Non-Af BUN/Creatinine Ratio Glucose Lactic Acid 3.0 H Calcium Total Bilirubin AST ALT Alkaline Phosphatase Troponin I Total Protein Albumin Globulin Albumin/Globulin Ratio Clinical Impression(s) from Imaging Studies Chest X-Ray 02/06/19 12:29 IMPRESSION: Thoracic congestion and mild CHF with a superimposed infiltrate and/or atelectasis in the right upper lobe. Electronically Signed: Claus Goode, at 14:16 EDT , Service support , Assessment/Plan This is a 73 years old female patient presented to the emergency room because of weakness, chills, cough and shortness of breath and she was found to have right upper lobe community-acquired pneumonia with severe sepsis. #1 right upper lobe committee acquired pneumonia/severe sepsis: Patient is febrile, heart rate more than 90, significant leukocytosis, lactic acid is elevated. Her blood pressure stable. Plan: Admit to PCU, cardiac monitoring, blood culture, urinalysis, urine culture, sputum culture, pneumococcal and Legionella antigen, gentle IV fluids for hydration, close monitoring of volume status, repeat lactic acid in 3 hours, start IV Rocephin and Zithromax, bronchodilators, incentive spirometer, repeat CBC and BMP tomorrow morning, PT OT evaluation and treatment. #2 hypokalemia: Likely because of Lasix, patient has been on chronic potassium supplement. Plan to give 1 dose of K. Dur 60 mEq x 1, continue home dose of potassium chloride p.o., check serum magnesium, repeat BMP tomorrow morning. #3 CAD status post CABG: EKG reviewed, no acute changes, troponin is negative. She had a recent abnormal stress test and I spoke with Dr. Bennett who mentioned that patient will need cardiac catheterization down the road but now, no indication for urgent cardiac interventions. Plan to continue aspirin, statins, beta-blockers, Plavix. #4 hypertension: Blood pressure stable, continue Norvasc, Coreg, hold Lasix. #5 chronic diastolic CHF: Clinically stable, compensated. Patient received IV fluid bolus in the ED for severe sepsis. Plan for close monitoring of volume status, continue Coreg and digoxin, hold Lasix for now. #6 peripheral vascular disease: Status post interventions/stents. She has been following up with vascular surgery. No acute issues. #8 paroxysmal atrial fibrillation: At this time, she is sinus rhythm, rate is controlled. Continue Coreg and digoxin for rate control, continue Xarelto for anticoagulation. #9 hyperlipidemia: Continue statins. #10 DVT prophylaxis: Continue Xarelto. This note was generated with [employer] dictation software. It may contain incorrect words, spelling, and punctuation that were not noted in checking the note before signing. Code Visit Inpatient E&M: 79097 Init Hosp L3
[2019-02-06 16:41] LABS: Reflex Lactate? Y
[2019-02-06 16:52] LABS: Magnesium 1.9 mg/dL (1.6-2.6)
[2019-02-06] MEDS: oxyCODONE 5 MG Tablet PO (16:57)
[2019-02-06] MEDS: Gabapentin 600 MG Tablet PO (17:04)
[2019-02-06] MEDS: 0.9% Normal Saline 1,000 ML 100 ML IV (17:27)
[2019-02-06 17:30] LABS: Lactic Acid 2.9 mmol/L (0.4-2.0)
[2019-02-06] MEDS: Rivaroxaban 20 MG Tablet PO (17:32)
[2019-02-06 18:25] LABS: Bacteria 0 SEEN /hpf (None Seen); Mucous, Urine 0 SEEN /hpf (<or=2+); Red Blood Cells-Urine 0 SEEN /hpf (0-5)
[2019-02-06 18:27] LABS: Color, Urine Yellow (Yellow); Glucose, Dipstick Normal (Normal); Ketone-Dipstick Negative (Negative); Leukocyte Esterase-Dipstick 100 /ul (Negative); Nitrite-Dipstick Negative (Negative); Occult Blood-Urine 25 /ul (Negative); Protein-Dipstick 30 mg/dl (Negative); Urine Bilirubin Dipstick Negative (Negative); Urine Clarity Clear (Clear); Urine Urobilinogen Normal (Normal)
[2019-02-06 18:35] LABS: Squamous Epithelial Cells - UA 0-5 SEEN /hpf (5-10); White Blood Cells 0-5 SEEN /hpf (0-5)
[2019-02-06 18:36] LABS: Transitional Epithelial - Ur 0-5 SEEN /hpf (0-5)
[2019-02-06] MEDS: Acetaminophen 325 MG Tablet 650 MG PO (18:57)
[2019-02-06] MEDS: Sucralfate 1 GM Tablet PO (22:19)
[2019-02-06] MEDS: ALPRAZolam 0.5 MG Tablet 1 MG PO (22:19)
[2019-02-06] MEDS: Atorvastatin Calcium 20 MG Tablet PO (22:20)
[2019-02-06] MEDS: Amitriptyline 100 MG Tablet PO (22:20)
[2019-02-06] MEDS: DULoxetine Hcl 60 MG Capsule PO (22:20)
[2019-02-06] MEDS: guaiFENesin 1,200 MG Tablet 1200 MG PO (22:20)
[2019-02-06] MEDS: Carvedilol 25 MG Tablet PO (22:20)
[2019-02-07] VITALS (19 sets, daily range): BP systolic 122–159; BP diastolic 38–62; PULSE 68–110; RESP 12–32; TEMP 36.9–38.1; O2SAT 87–99
[2019-02-07] MEDS: oxyCODONE 5 MG Tablet PO ×2 (03:55→13:44)
[2019-02-07] MEDS: Sucralfate 1 GM Tablet PO ×4 (06:02→21:55)
[2019-02-07] MEDS: ALPRAZolam 0.5 MG Tablet 1 MG PO ×3 (06:03→22:02)
[2019-02-07] MEDS: Ipratropium/Albuterol Sulfate 3 ML AMPUL.NEB INHALATION ×3 (07:16→19:44)
[2019-02-07 07:35] LABS: Absolute Lymphocyte Count 1.27 X10^3/ul (0.83-4.51); Absolute Neutrophil Count 17.3 X10^3/uL (2.0-7.7); Basophil# 0.02 X10^3/uL; Basophil% 0.1 % (0-1); Eosinophil# 0.01 X10^3/uL; Eosinophils% 0.1 % (0-5); Hemoglobin 8.6 g/dl (12.0-15.0); Lymphocyte # 1.27 X10^3/ul (4.0); Lymphocyte % 6.5 % (19-41); Mean Corp Hgb Conc 30.7 g/gl (32-36); Mean Corpuscular Hgb 24.1 pg (27.0-32.0); Mean Corpuscular Volume 78.4 fL (81-99); Mean Platelet Vol. 9.7 fl (6.2-12.0); Monocyte% 5.1 % (0-10); Neutrophil # 17.28 X10^3/uL (2.7-7.7); Neutrophil % 87.9 % (47-70); Platelet Count 194 K/mm3 (150-450); RBC Distribution Width CV 16.6 % (11.6-14.6); Red Blood Count 3.57 M/mm3 (4.2-5.4); White Blood Count 19.6 K/mm3 (4.4-11.0)
[2019-02-07 07:36] LABS: Anion Gap 6 (5-15); BUN 12 mg/dL (7-18); BUN/Creat Ratio 17.4 RATIO (10-20); Calcium,Total 8.4 mg/dL (8.5-10.1); Chloride 99 mmol/L (98-107); Creatinine, Serum 0.69 mg/dL (0.55-1.02); EST Glomerular Filtration Rate 89 mL/min (>60); Est Glom Filt Rate - Afr Amer 108 mL/min (>60); Estimated Creatinine Clearance 46.43 ml/min; Glucose 107 mg/dL (74-106); POSITIVE COUNT NO; POSITIVE DIFFERENTIAL NO; POSITIVE MORPHOLOGY NO; Potassium 3.6 mmol/L (3.5-5.1); Sodium Level 136 mmol/L (136-145)
[2019-02-07] MEDS: Pantoprazole Sodium 40 MG Tablet PO (08:53)
[2019-02-07] MEDS: Gabapentin 600 MG Tablet PO ×3 (08:53→17:15)
[2019-02-07] MEDS: DULoxetine Hcl 60 MG Capsule PO ×2 (08:53→21:56)
[2019-02-07] MEDS: Digoxin 125 MCG Tablet PO (08:53)
[2019-02-07] MEDS: Aspirin E.C. 81 MG Tablet PO (08:54)
[2019-02-07] MEDS: Carvedilol 25 MG Tablet PO ×2 (08:54→21:56)
[2019-02-07] MEDS: Clopidogrel Bisulfate 75 MG Tablet PO (08:54)
[2019-02-07] MEDS: guaiFENesin 1,200 MG Tablet 1200 MG PO ×2 (08:54→21:57)
[2019-02-07] MEDS: amLODIPine 10 MG Tablet PO (08:54)
[2019-02-07] MEDS: Ceftriaxone 1 GM/50 ML BAG IV ×2 (10:24→16:59)
--- NOTE | 2019-02-07 11:30 | ECHOD_ITS ---
Reason For Study: BACTEREMIA/ MURMUR Procedure This was a 2D Doppler, Color Flow transthoracic echocardiogram. The study was technically difficult. Limited doppler due to recent echo on 02/01/19. Exam performed portable in patient room. Left Ventricle Normal LV size. Left ventricular systolic function is normal. The estimated ejection fraction is 65 %. Unable to assess diastolic dysfunction. No regional wall motion abnormalities noted. Right Ventricle Normal RV size. Normal systolic function. Atria The left atrium is mildly enlarged. Normal right atrium. No doppler evidence for ASD. Mitral Valve There is mild mitral annular calcification. Extension of the mitral annular calcification onto the posterior mitral valve leaflet. Mild diffuse mitral valve thickening. Mild focal mitral valve calcification of the anterior leaflet. Mild-Moderate (1-2+) mitral valve insufficiency. Tricuspid Valve Normal tricuspid valve. Mild tricuspid valve insufficiency. Right ventricular systolic pressure estimated to be 42 mmHg. Aortic Valve Trisinus/trileaflet aortic valve. Moderate focal aortic valve calcification. Pulmonic Valve The pulmonic valve is not well visualized. Great Vessels Normal sized aortic root. Calcified aortic root. Pericardium/Pleural No pericardial effusion. MMode/2D Measurements & Calculations LVIDd: 5.3 cm IVSd: 0.89 cm Ao root diam: 3.4 cm LVIDs: 4.0 cm LVPWd: 1.2 cm LA dimension: 4.4 cm RVDd: 3.3 cm FS: 24.0 % LAV(MOD-bp): 62.9 ml LA A4 area: 20.9 cm2 RA A4 area: 11.3 cm2 LAV(MOD-bp) Indexed: 31.6 ml/m2 LAV(MOD-sp2): 62.5 ml LAV(MOD-sp4): 61.0 ml Doppler Measurements & Calculations TR max zeferino: 293.1 cm/sec TR max P.7 mmHg Interpretation Summary The study was technically difficult. Left ventricular systolic function is normal. The estimated ejection fraction is 65 %. The left atrium is mildly enlarged. There is mild mitral annular calcification. Extension of the mitral annular calcification onto the posterior mitral valve leaflet. Mild diffuse mitral valve thickening. Mild focal mitral valve calcification of the anterior leaflet. Mild-Moderate (1-2+) mitral valve insufficiency. Mild tricuspid valve insufficiency. Moderate focal aortic valve calcification. Calcified aortic root. Right ventricular systolic pressure estimated to be 42 mmHg. Unable to assess diastolic dysfunction. Comment: No obvious intracardiac mass lesion / thrombus identified. Consider further evaluation with COOPER if clinically indicated. Ordering Physician: Jose Alejandro Priest Referring Physician: RUBÉN RAMSAY Performed By: Haydee Thomson, RDCS, RVT
[2019-02-07 11:46] LABS: Iron 18 ug/dL (50-170); Iron Binding Capacity,Total 320 ug/dL (250-450); PERCENT IRON SATURATION 5.6 % (15.0-55.0)
--- NOTE | 2019-02-07 12:50 | PCM.PROGNOTE ---
<Jose Alejandro Priest - Last Filed: 02/07/19 12:50> Patient Problems: Active and Suspected Problems (Last Updated 02/06/19 @ 15:11 by Rich Roman MD) Pneumonia (Acute) Bacteremia due to group B Streptococcus (Acute) Severe sepsis (Acute) Hypokalemia (Acute) Subjective: Pt c/o ongoing lethargy, night sweats soaking the gown, fevers, chills, right chest and back pain. Cough is productive of sputum. No hemoptysis. No black stools. No abdominal pain. Hx ulcer for which she is on carafate/ppi. No dizziness/LH. No palp. Pt complains of multiple sick contacts with respiratory illness at her assisted living. She has a murmur - denies hx of murmur. - Physical Exam General: Alert, Oriented x3, Cooperative HEENT: Atraumatic, PERRLA, EOMI, Normocephalic Neck: Supple, No JVD, Negative Carotid Bruits Lungs: No rales, Diminished Cardiovascular: Regular rate, Murmur - 3/6 systolic murmur best heard at 2nd IC space LSB Abdomen: Bowel Sounds Present, Soft, Non Tender Extremities: No edema, Capillary Refill Less than 3 Seconds Skin: No rashes, No breakdown Musculoskeletal: No Tenderness to Palpation of Joints or Extremities Neurological: Cranial nerves II-XII grossly intact Psych/Mental Status: Normal Affect, Appropriate, Alert and oriented to time, place, person, mood and affect Vital Signs Temp Pulse Resp BP Pulse Ox 100.6 F H 77 18 137/57 H 95 02/07/19 08:46 02/07/19 08:53 02/07/19 08:46 02/07/19 08:46 02/07/19 08:46 Oxygen Flow Rate (L/min) 4 Oxygen Delivery Method Nasal Cannula Weight: 202 lb 6.15 oz Body Mass Index (BMI) 33.7 Intake and Output for Last 24 Hours 02/05/19 02/06/19 02/07/19 23:59 23:59 23:59 Intake Total 2320 / 2320 1150 / 1150 Balance 2320 / 2320 1150 / 1150 Microbiology Past 72 Hours 02/06/19 17:30 Respiratory Culture - Preliminary Sputum, Expectorated/Coughed Appears to be normal respiratory myron. Further studies to follow. 02/07/19 11:29 Influenza Types A,B Direct FA (MAX) - Final Mucosa - Nasopharyngeal 02/06/19 12:50 Blood Culture - Preliminary Blood Culture (Wb) - Left Hand Gram Positive Cocci 02/06/19 12:20 Bacteria Detection (PCR) - Final Blood Culture (Wb) - Anticubital Right Streptococcus agalactiae (B) Blood Culture - Preliminary Streptococcus agalactiae (B) 02/06/19 17:50 Streptococcus pneumoniae Antigen (M - Final Urine, Random 02/06/19 17:50 Legionella Antigen - Final Urine, Random Laboratory Tests Past 24 Hrs 02/06/19 02/06/19 02/06/19 12:20 12:20 12:20 WBC 23.4 H RBC 4.84 Hgb 11.7 L Hct 38.1 MCV 78.7 L MCH 24.2 L MCHC 30.7 L RDW 16.2 H RDW Differential 46.6 H Plt Count 265 MPV 10.1 Immature Gran % (Auto) 0.300 Neut % (Auto) 92.1 H Lymph % (Auto) 2.7 L [place] % (Auto) 4.5 Eos % (Auto) 0.3 Baso % (Auto) 0.1 Absolute Neuts (auto) 21.5 H Absolute Lymphs (auto) 0.62 L Total Counted Not Reportable Differential Comment SCANNED PT 14.4 INR 1.1 APTT 31.7 Sodium 136 Potassium 3.2 L Chloride 94 L Carbon Dioxide 35.0 H Anion Gap 7 BUN 11 Creatinine 0.87 Estim Creat Clear Calc 53.37 Est GFR (MDRD) Af Amer 83 Est GFR (MDRD) Non-Af 68 BUN/Creatinine Ratio 12.6 Glucose 172 H Lactic Acid Calcium 9.1 Magnesium Iron TIBC Iron Saturation Total Bilirubin 0.70 AST 49 H ALT 39 Alkaline Phosphatase 186 H Troponin I < 0.015 Total Protein 8.7 H Albumin 3.9 Globulin 4.8 H Albumin/Globulin Ratio 0.8 L Urine Color Urine Clarity Urine pH Ur Specific [place] Urine Protein Urine Glucose (UA) Urine Ketones Urine Occult Blood Urine Nitrite Urine Bilirubin Urine Urobilinogen Ur Leukocyte Esterase Urine RBC Urine WBC Ur Squamous Epith Cells Ur Transition Epith Cell Urine Bacteria Urine Mucus 02/06/19 02/06/19 02/06/19 12:20 12:20 16:55 WBC RBC Hgb Hct MCV MCH MCHC RDW RDW Differential Plt Count MPV Immature Gran % (Auto) Neut % (Auto) Lymph % (Auto) [place] % (Auto) Eos % (Auto) Baso % (Auto) Absolute Neuts (auto) Absolute Lymphs (auto) Total Counted Differential Comment PT INR APTT Sodium Potassium Chloride Carbon Dioxide Anion Gap BUN Creatinine Estim Creat Clear Calc Est GFR (MDRD) Af Amer Est GFR (MDRD) Non-Af BUN/Creatinine Ratio Glucose Lactic Acid 3.0 H 2.9 H Calcium Magnesium 1.9 Iron TIBC Iron Saturation Total Bilirubin AST ALT Alkaline Phosphatase Troponin I Total Protein Albumin Globulin Albumin/Globulin Ratio Urine Color Urine Clarity Urine pH Ur Specific [place] Urine Protein Urine Glucose (UA) Urine Ketones Urine Occult Blood Urine Nitrite Urine Bilirubin Urine Urobilinogen Ur Leukocyte Esterase Urine RBC Urine WBC Ur Squamous Epith Cells Ur Transition Epith Cell Urine Bacteria Urine Mucus 02/06/19 02/07/19 02/07/19 17:50 06:35 06:53 WBC 19.6 H RBC 3.57 L Hgb 8.6 L Hct 28.0 L MCV 78.4 L MCH 24.1 L MCHC 30.7 L RDW 16.6 H RDW Differential 48.0 H Plt Count 194 MPV 9.7 Immature Gran % (Auto) 0.300 Neut % (Auto) 87.9 H Lymph % (Auto) 6.5 L [place] % (Auto) 5.1 Eos % (Auto) 0.1 Baso % (Auto) 0.1 Absolute Neuts (auto) 17.3 H Absolute Lymphs (auto) 1.27 Total Counted Not Reportable Differential Comment PT INR APTT Sodium Potassium Chloride Carbon Dioxide Anion Gap BUN Creatinine Estim Creat Clear Calc Est GFR (MDRD) Af Amer Est GFR (MDRD) Non-Af BUN/Creatinine Ratio Glucose Lactic Acid Calcium Magnesium Iron 18 L TIBC 320 Iron Saturation 5.6 L Total Bilirubin AST ALT Alkaline Phosphatase Troponin I Total Protein Albumin Globulin Albumin/Globulin Ratio Urine Color Yellow Urine Clarity Clear Urine pH 7.0 Ur Specific [place] 1.010 Urine Protein 30 H Urine Glucose (UA) Normal Urine Ketones Negative Urine Occult Blood 25 H Urine Nitrite Negative Urine Bilirubin Negative Urine Urobilinogen Normal Ur Leukocyte Esterase 100 H Urine RBC 0 SEEN Urine WBC 0-5 SEEN Ur Squamous Epith Cells 0-5 SEEN Ur Transition Epith Cell 0-5 SEEN Urine Bacteria 0 SEEN Urine Mucus 0 SEEN 02/07/19 06:53 WBC RBC Hgb Hct MCV MCH MCHC RDW RDW Differential Plt Count MPV Immature Gran % (Auto) Neut % (Auto) Lymph % (Auto) [place] % (Auto) Eos % (Auto) Baso % (Auto) Absolute Neuts (auto) Absolute Lymphs (auto) Total Counted Differential Comment PT INR APTT Sodium 136 Potassium 3.6 Chloride 99 Carbon Dioxide 31.0 Anion Gap 6 BUN 12 Creatinine 0.69 Estim Creat Clear Calc 46.43 Est GFR (MDRD) Af Amer 108 Est GFR (MDRD) Non-Af 89 BUN/Creatinine Ratio 17.4 Glucose 107 H Lactic Acid Calcium 8.4 L Magnesium Iron TIBC Iron Saturation Total Bilirubin AST ALT Alkaline Phosphatase Troponin I Total Protein Albumin Globulin Albumin/Globulin Ratio Urine Color Urine Clarity Urine pH Ur Specific [place] Urine Protein Urine Glucose (UA) Urine Ketones Urine Occult Blood Urine Nitrite Urine Bilirubin Urine Urobilinogen Ur Leukocyte Esterase Urine RBC Urine WBC Ur Squamous Epith Cells Ur Transition Epith Cell Urine Bacteria Urine Mucus Medical Necessity - Tobacco Use Smoking Status: Current some day smoker Tobacco Use: Cigarettes Assessment/Plan All Active Problems (Last Updated 02/06/19 @ 15:11 by Rich Roman MD) Pneumonia (Acute) Bacteremia due to group B Streptococcus (Acute) Severe sepsis (Acute) Hypokalemia (Acute) 1. Acute severe sepsis, bacteremia, with acute hypoxic resp failure - 2/2 CAP - CXR with RUL infiltrate. + high WBC, fever, elevated Lactate. blood cultures showing Strep agalactiae. new murmur. Obtain echo. Recheck blood cultures x2. Follow sputum cx. UA neg. Continue rocephin and azithro. Influenza negative, urine antigens negative. Currently requiring 4lpm O2. No prior lung dz or chronic O2 use 2. Microcytic anemia - iron deficiency. Replete. Check stool occult blood. no hemoptysis. Hx stomach ulcer, on PPI, carafate, also on xarelto, aspirin, plavix. Platelets normal. 3. Gastric ulcer - as above continue ppi/carafate. 4. PAfib, hx DVT - xarelto. On digoxin, coreg 5. Hx SLE - not on maintenance therapy - no arthritic complaints. 6. HLD/HTN/Hx CAD with prior CABGx4 - continue home meds. 7. PVD - pt of Dr. Arauz. Planning for o/p carotid endarterectomy. 8. Hx diastolic CHF - hold lasix. no evidence of acute failure. 9. Chronic pain - home elavil, neurontin, cymbalta DVT ppx: xarelto This patient was seen by Jose Alejandro Priest PA-C under the supervision of Dr. Rodriguez. <Heriberto Rodriguez - Last Filed: 02/07/19 14:26> Subjective: Feeling better, but still feeling ill overall. - Physical Exam General: Alert, Cooperative HEENT: Atraumatic, Normocephalic Neck: No Nodes, Thyroid Normal Size and Texture Lungs: - - coarse breath sounds bilaterally. Cardiovascular: Regular rate, Murmur Abdomen: Bowel Sounds Present, Soft, Non Tender, Non-Distended Extremities: No edema, No Calf Tenderness Skin: No rashes, No breakdown Psych/Mental Status: Normal Affect, Appropriate Vital Signs Temp Pulse Resp BP Pulse Ox 37.2 C 69 16 132/54 H 92 02/07/19 13:53 02/07/19 13:53 02/07/19 13:57 02/07/19 13:53 02/07/19 13:53 Oxygen Flow Rate (L/min) 4 Oxygen Delivery Method Nasal Cannula Weight: 91.8 kg Body Mass Index (BMI) 33.7 Intake and Output for Last 24 Hours 02/05/19 02/06/19 02/07/19 23:59 23:59 23:59 Intake Total 2320 / 2320 1150 / 1150 Balance 2320 / 2320 1150 / 1150 Microbiology Past 72 Hours 02/06/19 17:30 Gram Stain - Final Sputum, Expectorated/Coughed Respiratory Culture - Preliminary Appears to be normal respiratory myron. Further studies to follow. 02/07/19 11:29 Influenza Types A,B Direct FA (MAX) - Final Mucosa - Nasopharyngeal 02/06/19 12:50 Blood Culture - Preliminary Blood Culture (Wb) - Left Hand Gram Positive Cocci 02/06/19 12:20 Bacteria Detection (PCR) - Final Blood Culture (Wb) - Anticubital Right Streptococcus agalactiae (B) Blood Culture - Preliminary Streptococcus agalactiae (B) 02/06/19 17:50 Streptococcus pneumoniae Antigen (M - Final Urine, Random 02/06/19 17:50 Legionella Antigen - Final Urine, Random Laboratory Tests Past 24 Hrs 02/06/19 02/06/19 02/06/19 12:20 16:55 17:50 WBC RBC Hgb Hct MCV MCH MCHC RDW RDW Differential Plt Count MPV Immature Gran % (Auto) Neut % (Auto) Lymph % (Auto) [place] % (Auto) Eos % (Auto) Baso % (Auto) Absolute Neuts (auto) Absolute Lymphs (auto) Total Counted Sodium Potassium Chloride Carbon Dioxide Anion Gap BUN Creatinine Estim Creat Clear Calc Est GFR (MDRD) Af Amer Est GFR (MDRD) Non-Af BUN/Creatinine Ratio Glucose Lactic Acid 2.9 H Calcium Magnesium 1.9 Iron TIBC Iron Saturation Urine Color Yellow Urine Clarity Clear Urine pH 7.0 Ur Specific [place] 1.010 Urine Protein 30 H Urine Glucose (UA) Normal Urine Ketones Negative Urine Occult Blood 25 H Urine Nitrite Negative Urine Bilirubin Negative Urine Urobilinogen Normal Ur Leukocyte Esterase 100 H Urine RBC 0 SEEN Urine WBC 0-5 SEEN Ur Squamous Epith Cells 0-5 SEEN Ur Transition Epith Cell 0-5 SEEN Urine Bacteria 0 SEEN Urine Mucus 0 SEEN 02/07/19 02/07/19 02/07/19 06:35 06:53 06:53 WBC 19.6 H RBC 3.57 L Hgb 8.6 L Hct 28.0 L MCV 78.4 L MCH 24.1 L MCHC 30.7 L RDW 16.6 H RDW Differential 48.0 H Plt Count 194 MPV 9.7 Immature Gran % (Auto) 0.300 Neut % (Auto) 87.9 H Lymph % (Auto) 6.5 L [place] % (Auto) 5.1 Eos % (Auto) 0.1 Baso % (Auto) 0.1 Absolute Neuts (auto) 17.3 H Absolute Lymphs (auto) 1.27 Total Counted Not Reportable Sodium 136 Potassium 3.6 Chloride 99 Carbon Dioxide 31.0 Anion Gap 6 BUN 12 Creatinine 0.69 Estim Creat Clear Calc 46.43 Est GFR (MDRD) Af Amer 108 Est GFR (MDRD) Non-Af 89 BUN/Creatinine Ratio 17.4 Glucose 107 H Lactic Acid Calcium 8.4 L Magnesium Iron 18 L TIBC 320 Iron Saturation 5.6 L Urine Color Urine Clarity Urine pH Ur Specific [place] Urine Protein Urine Glucose (UA) Urine Ketones Urine Occult Blood Urine Nitrite Urine Bilirubin Urine Urobilinogen Ur Leukocyte Esterase Urine RBC Urine WBC Ur Squamous Epith Cells Ur Transition Epith Cell Urine Bacteria Urine Mucus Assessment/Plan Patient seen and examined independently. Data reviewed. I agree with the above note by the physician psychological assistant. 1. severe sepsis 2/2 bacteremia and pneumonia. improved follow up cultures and adjust abx accordingly 2. Group B strep bacteremia unknown primary source repeat BCx check echo change abx to CTX 2g/d (will give an additional 1g for total of 2 today) 3. Pneumonia unclear type question if infectious emboli check CT chest Code Visit Inpatient E&M: 39350 Subs Hosp L3
--- NOTE | 2019-02-07 14:15 | CT_ITS ---
STUDY: CT CHEST WITH CONTRAST REASON FOR EXAM: Female, 73 years old. Pneumonia RADIATION DOSAGE (If Supplied By Facility): DLP = ( 616.00 ) mGycm TECHNIQUE: Transaxial imaging was performed following intravenous administration of 100 ml of Isovue 300 contrast material. Coronal and sagittal reformatted images were created. Individualized dose optimization techniques were used for this CT. COMPARISON: None FINDINGS: There are consolidations in the right upper lobe and left lower lobe. There is a right lower lobe peripherally calcified nodule. Bibasilar atelectasis is present. The heart and pericardium are within normal limits. Coronary artery calcifications are present. There is no thoracic lymphadenopathy. There is no evidence of thoracic aortic aneurysm. Images through the upper abdomen demonstrate no significant abnormality. There are no destructive osseous lesions. CT/Chest WITH Contrast IMPRESSION: Consolidations in the right upper lobe and left lower lobe. Right lower lobe peripherally calcified lesion, of unlikely clinical significance. Coronary artery calcifications. Electronically Signed: Parviz Castro, at 17:02 EDT Tel , Service support ,
--- NOTE | 2019-02-07 14:28 | CASEMGMT ---
Patient is from [facility]. TYREE faxed updates to [facility]. Neyda HEART MSW
--- NOTE | 2019-02-07 16:42 | CHAPLAIN ---
Type of Pastoral Visit _x__ Initial Visit ___ Follow-up Visit ___ On-call Visit ___ General Patient Visit ___ Spiritual Assessment ___ Family Conference ___ Bereavement ___ Rapid Response ___ Code Blue ___ Other (describe below) Pastoral Care Referral From _x__ Patient ___ Family ___ Nurse ___ Physician ___ Water Treatment Plant Operator ___ Senior Manufacturing Supervisor ___ Other (describe below) Sacrament/Intervention _x__ Active listening ___ Anointing ___ Spiritism ___ Bereavement ___ Communion ___ Lizz exploration ___ ___ Life review _x__ Prayer ___ Reconciliation ___ Sacrament of Sick _x__ Supportive presence ___ Wedding ___ Other (describe below) Pastoral Comments
[2019-02-07] MEDS: Acetaminophen 325 MG Tablet 650 MG PO (16:58)
[2019-02-07] MEDS: Rivaroxaban 20 MG Tablet PO (17:15)
--- NOTE | 2019-02-07 17:50 | NURSING ---
Addendum entered by Amado Stern 02/07/19 20:36: into room @ 1745- left room 1810 Original Note: pt called out stating she is short of breath. does appears in mild resp distress, increased respirations. saturations 80%. encouraged pursed lip breathing, helped pt calm down. pt stated she had a coughing episode and then was up to the bathroom. remains on 4L NC, saturations up to 88%. Pt states she feels much better and would like to rest.
--- NOTE | 2019-02-07 19:00 | NURSING ---
into room at 1840, pt states she feels good, in no distress. saturations 80%. up to 82% on 5L NC, 83% on 50% VM. Called Dr Rodriguez, he stated to have respiratory come up and place pt on bipap and make pt stepdown status. called resp, they are on floor and brought bipap. 07/07 50%, saturations up to 94% almost immediately. placed on step down monitor.
[2019-02-07 20:31] LABS: Allen Test POS; Base Excess 4 mmol/L (-2 to +2); Bicarbonate 28.9 mmol/L (22-26); Blood Gas Specimen Type ART; EPAP 8; FI02 50; IPAP 12; PO2 71 mmHG (75-100); RR 12; SITE R Radial; SO2 94 % (95-99); Time Given 2015; Total Carbon Dioxide 30 mmol/L; pCO2 45.8 mmHg (35-45); pH 7.41 (7.35-7.45)
[2019-02-07] MEDS: Amitriptyline 100 MG Tablet PO (21:57)
[2019-02-07] MEDS: Atorvastatin Calcium 20 MG Tablet PO (21:57)
[2019-02-08] VITALS (31 sets, daily range): BP systolic 114–151; BP diastolic 54–92; PULSE 65–96; RESP 12–31; TEMP 36.3–37.8; O2SAT 50–954
--- NOTE | 2019-02-08 00:06 | RAD_ITS ---
HISTORY: Short of breath. Dyspnea. EXAM: XR Chest 1 View: COMPARISON: February 06, 2019 FINDINGS: # of images incl. paperwork: 1 Sternal wires persists. Calcific plaque within the aortic arch persists. 8 mm pulmonary nodule within the right lower lobe is better demonstrated. Right upper lobe airspace disease sitting on the minor fissure is less well discerned. Pulmonary vascularity remains slightly indistinct. Diffuse airspace disease is present. Due to increased pulmonary expansion, the overall appearance of the lungs has improved since the previous study. Heart is not enlarged. Thoracic spondylosis persists. Shoulder arthritis persists.. Pulmonary vascularity is indistinct. Due to blunting of the left lateral costophrenic sulcus, there is likely a left pleural effusions. RAD/Chest 1 View (Portable) IMPRESSION: Slight improvement from the previous study. Less airspace disease in the right upper lobe on the minor fissure. Persistent left lower lobe airspace disease. Due to increased pulmonary expansion better definition of well-defined right lower lobe 8 mm pulmonary nodule. Additional comparison is available from a chest CT of February 07, 2019. The calcified pulmonary nodule is well demonstrated at that time. The airspace disease in the left lower lobe in the right upper lobe were demonstrated at that time as well.. at 0142 Reported and signed by: Timoteo Loving MD Electronically Signed: Timoteo Loving MD at 1:41 EDT Tel , Service support ,
[2019-02-08 00:49] LABS: BNP,B-Type NATRIURETIC PEPTIDE 349.5 pg/mL (0-100)
[2019-02-08] MEDS: Ipratropium/Albuterol Sulfate 3 ML AMPUL.NEB INHALATION ×4 (01:26→19:58)
[2019-02-08 05:57] LABS: Anion Gap 4 (5-15); BUN 10 mg/dL (7-18); BUN/Creat Ratio 14.7 RATIO (10-20); Calcium,Total 8.7 mg/dL (8.5-10.1); Chloride 100 mmol/L (98-107); Creatinine, Serum 0.68 mg/dL (0.55-1.02); EST Glomerular Filtration Rate 91 mL/min (>60); Est Glom Filt Rate - Afr Amer 110 mL/min (>60); Estimated Creatinine Clearance 46.43 ml/min; Glucose 125 mg/dL (74-106); Potassium 3.8 mmol/L (3.5-5.1); Sodium Level 135 mmol/L (136-145)
[2019-02-08] MEDS: Sucralfate 1 GM Tablet PO ×4 (06:05→22:20)
[2019-02-08] MEDS: ALPRAZolam 0.5 MG Tablet 1 MG PO ×3 (06:07→22:23)
[2019-02-08 06:13] LABS: Absolute Lymphocyte Count 0.99 X10^3/ul (0.83-4.51); Absolute Neutrophil Count 12.2 X10^3/uL (2.0-7.7); Basophil# 0.03 X10^3/uL; Basophil% 0.2 % (0-1); Eosinophil# 0.05 X10^3/uL; Eosinophils% 0.4 % (0-5); Hematocrit 27.6 % (37-47); Hemoglobin 8.5 g/dl (12.0-15.0); Lymphocyte # 0.99 X10^3/ul (4.0); Mean Corp Hgb Conc 30.8 g/gl (32-36); Mean Corpuscular Hgb 24.1 pg (27.0-32.0); Mean Corpuscular Volume 78.2 fL (81-99); Mean Platelet Vol. 10.2 fl (6.2-12.0); Monocyte# 0.74 X10^3/uL; Monocyte% 5.2 % (0-10); Neutrophil # 12.23 X10^3/uL (2.7-7.7); Neutrophil % 86.8 % (47-70); Platelet Count 193 K/mm3 (150-450); RBC Distribution Width CV 16.9 % (11.6-14.6); RBC Distribution Width SD 48.4 fl (35.1-43.9); Red Blood Count 3.53 M/mm3 (4.2-5.4); White Blood Count 14.1 K/mm3 (4.4-11.0)
[2019-02-08 06:14] LABS: POSITIVE COUNT NO; POSITIVE DIFFERENTIAL NO; POSITIVE MORPHOLOGY NO
[2019-02-08] MEDS: oxyCODONE 5 MG Tablet PO (06:23)
--- NOTE | 2019-02-08 07:04 | CPS ---
Patient taken off BiPAP at this time, placed on 4lpm nasal cannula. Patient requested, after aerosol treatment, to stay on nasal cannula until she was finished with breakfast. After aerosol, sats at 89%, increased flow to 4.5. Patient does not appear in resp distress. RN notified.
[2019-02-08] MEDS: Aspirin E.C. 81 MG Tablet PO (07:59)
[2019-02-08] MEDS: Iron Polysaccharide Complex 150 MG CAPSULE PO (07:59)
[2019-02-08] MEDS: Pantoprazole Sodium 40 MG Tablet PO (07:59)
[2019-02-08] MEDS: Gabapentin 600 MG Tablet PO ×3 (07:59→17:01)
[2019-02-08] MEDS: Carvedilol 25 MG Tablet PO ×2 (10:04→22:21)
[2019-02-08] MEDS: guaiFENesin 1,200 MG Tablet 1200 MG PO ×2 (10:05→22:22)
[2019-02-08] MEDS: Digoxin 125 MCG Tablet PO (10:05)
[2019-02-08] MEDS: DULoxetine Hcl 60 MG Capsule PO ×2 (10:05→22:21)
[2019-02-08] MEDS: Clopidogrel Bisulfate 75 MG Tablet PO (10:06)
[2019-02-08] MEDS: amLODIPine 10 MG Tablet PO (10:06)
--- NOTE | 2019-02-08 10:30 | CPS ---
Patient to be started on VEST therapy. Patient was placed back on BiPAP by RN and is currently sleeping. Will initiate vest therapy after lunch, while patient is sitting in the chair. RN aware of plan.
--- NOTE | 2019-02-08 10:31 | NURSING ---
BiPap applied d/t patient request.
[2019-02-08] MEDS: Albuterol 2.5 MG/3 ML VIAL.NEB. INHALATION (10:39)
[2019-02-08] MEDS: predniSONE 20 MG Tablet 40 MG PO (12:23)
--- NOTE | 2019-02-08 13:41 | CPS ---
Patient did not tolerate vest therapy well. Patient complained of pain on sternum from [facility] 5 years ago, and Nausea. Vest therapy stopped. LICO and Deshawn brannon.
--- NOTE | 2019-02-08 14:12 | PN_ITS ---
<Jose Alejandro Priest - Last Filed: 02/08/19 14:12> Patient Problems: Active and Suspected Problems (Last Updated 02/06/19 @ 15:11 by Rich Roman MD) Hypokalemia (Acute) Severe sepsis (Acute) Bacteremia due to group B Streptococcus (Acute) Pneumonia (Acute) Subjective: Patient more alert this morning. Continues to have shortness of breath, conversational dyspnea. She did require BiPAP last night is on 4-1/2 L/min oxygen here now. She did admit that she uses 4 L/min as needed at the long term. She states she normally does not wear oxygen during the day, she will wear it at night, and when she gets tired during the day she goes back to her room and puts on 4 L. She denies underlying lung disease, she does have a history of CHF however. She also admits that she is smoking at assisted living. She quit 5 years ago however 3 years ago when she was moved into assisted living she restarted. Patient has a cough which is nonproductive now. Still having night sweats, fevers. No chills. Patient has had a bloody nose-now with humidified oxygen. No lower extremity edema. She has been having difficulty with Pep therapy due to weakness. Patient is more wheezy today. - Physical Exam General: Alert, Oriented x3, Cooperative HEENT: Atraumatic, PERRLA, EOMI, Normocephalic Neck: Supple, No JVD, Negative Carotid Bruits Lungs: Diminished, Rales, Wheezes Cardiovascular: Regular rate, No murmurs Abdomen: Bowel Sounds Present, Soft, Non Tender Extremities: No edema, Capillary Refill Less than 3 Seconds Skin: No rashes, No breakdown Musculoskeletal: No Tenderness to Palpation of Joints or Extremities Neurological: Cranial nerves II-XII grossly intact Psych/Mental Status: Normal Affect, Appropriate, Alert and oriented to time, place, person, mood and affect Vital Signs Temp Pulse Resp BP Pulse Ox 98.1 F 75 23 H 115/77 95 02/08/19 12:47 02/08/19 12:55 02/08/19 12:47 02/08/19 12:47 02/08/19 12:47 Oxygen Flow Rate (L/min) 4 Oxygen Delivery Method Nasal Cannula Weight: 202 lb 6.15 oz Body Mass Index (BMI) 33.7 Intake and Output for Last 24 Hours 02/06/19 02/07/19 02/08/19 23:59 23:59 23:59 Intake Total 2320 / 2320 1707.4 / 1707.4 469 / 469 Balance 2320 / 2320 1707.4 / 1707.4 469 / 469 Microbiology Past 72 Hours 02/06/19 17:30 Gram Stain - Final Sputum, Expectorated/Coughed Respiratory Culture - Preliminary Appears to be normal respiratory myron. Further studies to follow. 02/06/19 17:50 Urine Culture - Final Urine, Clean Catch Mixed Gram Positive Organisms 02/06/19 12:50 Blood Culture - Preliminary Blood Culture (Wb) - Left Hand Streptococcus agalactiae (B) 02/06/19 12:20 Bacteria Detection (PCR) - Final Blood Culture (Wb) - Anticubital Right Streptococcus agalactiae (B) Blood Culture - Final Streptococcus agalactiae (B) 02/07/19 11:29 Influenza Types A,B Direct FA (MAX) - Final Mucosa - Nasopharyngeal 02/06/19 17:50 Streptococcus pneumoniae Antigen (M - Final Urine, Random 02/06/19 17:50 Legionella Antigen - Final Urine, Random Laboratory Tests Past 24 Hrs 02/07/19 02/07/19 02/08/19 06:53 20:26 05:20 WBC 14.1 H RBC 3.53 L Hgb 8.5 L Hct 27.6 L MCV 78.2 L MCH 24.1 L MCHC 30.8 L RDW 16.9 H RDW Differential 48.4 H Plt Count 193 MPV 10.2 Immature Gran % (Auto) 0.400 Neut % (Auto) 86.8 H Lymph % (Auto) 7.0 L Baxter % (Auto) 5.2 Eos % (Auto) 0.4 Baso % (Auto) 0.2 Absolute Neuts (auto) 12.2 H Absolute Lymphs (auto) 0.99 Total Counted Not Reportable Specimen Type ART Sample Site R Radial pH 7.41 Bicarbonate Actual 28.9 H POC Total CO2 30 Base Excess 4 H O2 Saturation 94 L O2 % 50 ABG pCO2 45.8 H ABG pO2 71 L Larry Test POS Respiration Rate 12 O2 Delivery Device Bi / C PAP EPAP 8 IPAP 12 Blood Gas Notified Whom HOSP Blood Gas Notified Time 2014 Sodium Potassium Chloride Carbon Dioxide Anion Gap BUN Creatinine Estim Creat Clear Calc Est GFR (MDRD) Af Amer Est GFR (MDRD) Non-Af BUN/Creatinine Ratio Glucose Calcium B-Natriuretic Peptide 349.5 H 02/08/19 05:20 WBC RBC Hgb Hct MCV MCH MCHC RDW RDW Differential Plt Count MPV Immature Gran % (Auto) Neut % (Auto) Lymph % (Auto) [place] % (Auto) Eos % (Auto) Baso % (Auto) Absolute Neuts (auto) Absolute Lymphs (auto) Total Counted Specimen Type Sample Site pH Bicarbonate Actual POC Total CO2 Base Excess O2 Saturation O2 % ABG pCO2 ABG pO2 Larry Test Respiration Rate O2 Delivery Device EPAP IPAP Blood Gas Notified Whom Blood Gas Notified Time Sodium 135 L Potassium 3.8 Chloride 100 Carbon Dioxide 31.0 Anion Gap 4 L BUN 10 Creatinine 0.68 Estim Creat Clear Calc 46.43 Est GFR (MDRD) Af Amer 110 Est GFR (MDRD) Non-Af 91 BUN/Creatinine Ratio 14.7 Glucose 125 H Calcium 8.7 B-Natriuretic Peptide Medical Necessity - Tobacco Use Smoking Status: Current some day smoker Tobacco Use: Cigarettes Assessment/Plan All Active Problems (Last Updated 02/06/19 @ 15:11 by Rich Roman MD) Hypokalemia (Acute) Severe sepsis (Acute) Bacteremia due to group B Streptococcus (Acute) Pneumonia (Acute) 1. Acute severe sepsis, bacteremia, with acute hypoxic resp failure - 2/2 CAP - CXR with RUL infiltrate. + high WBC, fever, elevated Lactate. blood cultures showing Strep agalactiae. TTE done without evidence of vegetation however study was limited. Recheck blood cultures x2. Sputum without definitive organisms. UA neg. Continue rocephin, increase to 2 g daily. Influenza negative, urine antigens negative. Currently requiring 4lpm O2. Did require BiPAP last night. No prior lung dz or chronic O2 use. With her history of smoking and resumption of smoking I suspect she has underlying COPD. She is wheezing. Added oral prednisone today. She was having difficulty with the PEP therapy we attempted to use the vest today, she did not tolerate this very well. Encouraged geraldine ntive spirometer and continued attempts at PEP. Encouraged out of bed at least for meals. Last fever 100.0 @ 0800. 2. Microcytic anemia - iron deficiency. Replete. Check stool occult blood. no hemoptysis. Hx stomach ulcer, on PPI, carafate, also on xarelto, aspirin, plavix. Platelets normal. 3. Gastric ulcer - as above continue ppi/carafate. 4. PAfib, hx DVT - xarelto. On digoxin, coreg 5. Hx SLE - not on maintenance therapy - no arthritic complaints. 6. HLD/HTN/Hx CAD with prior CABGx4 - continue home meds. 7. PVD - pt of Dr. Arauz. Planning for o/p carotid endarterectomy. 8. Hx diastolic CHF - hold lasix. no evidence of acute failure. 9. Chronic pain - home elavil, neurontin, cymbalta Discharge planning: PT OT, patient very weak, may have additional therapy needs at discharge. We will need to clarify her oxygen needs at discharge. She will likely need referral to pulmonology as an outpatient for COPD work-up. DVT ppx: [email or web address] This patient was seen by Jose Alejandro Priest PA-C under the supervision of Dr. Rodriguez. <Heriberto Rodriguez - Last Filed: 02/08/19 14:47> Subjective: Required BiPAP last night. Taken off earlier today, but patient was getting tired, so placed back on BiPAP. States she feels better. Concerned that she cannot return home, according to the patient, her [id number] does not want her back. - Physical Exam General: Alert, Cooperative, - - on BiPAP HEENT: Atraumatic, Normocephalic Oral: Moist Mucosa, No Gingival or Mucosal Lesions/ Ulcerations Neck: No Nodes, Thyroid Normal Size and Texture Lungs: Diminished, - - coarse breath sounds bilaterally. Cardiovascular: Regular rate, Regular Rhythm, Normal S1, Normal S2, No murmurs Abdomen: Bowel Sounds Present, Soft, Non Tender, Non-Distended Extremities: No edema, No Calf Tenderness Skin: No rashes, No breakdown Psych/Mental Status: Normal Affect, Appropriate Vital Signs Temp Pulse Resp BP Pulse Ox 36.7 C 75 23 H 115/77 95 02/08/19 12:47 02/08/19 12:55 02/08/19 12:47 02/08/19 12:47 02/08/19 12:47 Oxygen Flow Rate (L/min) 4 Oxygen Delivery Method Nasal Cannula Weight: 91.8 kg Body Mass Index (BMI) 33.7 Intake and Output for Last 24 Hours 02/06/19 02/07/19 02/08/19 23:59 23:59 23:59 Intake Total 2320 / 2320 1707.4 / 1707.4 469 / 469 Balance 2320 / 2320 1707.4 / 1707.4 469 / 469 Microbiology Past 72 Hours 02/06/19 17:30 Gram Stain - Final Sputum, Expectorated/Coughed Respiratory Culture - Preliminary Appears to be normal respiratory myron. Further studies to follow. 02/06/19 17:50 Urine Culture - Final Urine, Clean Catch Mixed Gram Positive Organisms 02/06/19 12:50 Blood Culture - Preliminary Blood Culture (Wb) - Left Hand Streptococcus agalactiae (B) 02/06/19 12:20 Bacteria Detection (PCR) - Final Blood Culture (Wb) - Anticubital Right Streptococcus agalactiae (B) Blood Culture - Final Streptococcus agalactiae (B) 02/07/19 11:29 Influenza Types A,B Direct FA (MAX) - Final Mucosa - Nasopharyngeal 02/06/19 17:50 Streptococcus pneumoniae Antigen (M - Final Urine, Random 02/06/19 17:50 Legionella Antigen - Final Urine, Random Laboratory Tests Past 24 Hrs 02/07/19 02/07/19 02/08/19 06:53 20:26 05:20 WBC 14.1 H RBC 3.53 L Hgb 8.5 L Hct 27.6 L MCV 78.2 L MCH 24.1 L MCHC 30.8 L RDW 16.9 H RDW Differential 48.4 H Plt Count 193 MPV 10.2 Immature Gran % (Auto) 0.400 Neut % (Auto) 86.8 H Lymph % (Auto) 7.0 L Baxter % (Auto) 5.2 Eos % (Auto) 0.4 Baso % (Auto) 0.2 Absolute Neuts (auto) 12.2 H Absolute Lymphs (auto) 0.99 Total Counted Not Reportable Specimen Type ART Sample Site R Radial pH 7.41 Bicarbonate Actual 28.9 H POC Total CO2 30 Base Excess 4 H O2 Saturation 94 L O2 % 50 ABG pCO2 45.8 H ABG pO2 71 L Larry Test POS Respiration Rate 12 O2 Delivery Device Bi / C PAP EPAP 8 IPAP 12 Blood Gas Notified Whom HOSP MD Blood Gas Notified Time 2014 Sodium Potassium Chloride Carbon Dioxide Anion Gap BUN Creatinine Estim Creat Clear Calc Est GFR (MDRD) Af Amer Est GFR (MDRD) Non-Af BUN/Creatinine Ratio Glucose Calcium B-Natriuretic Peptide 349.5 H 02/08/19 05:20 WBC RBC Hgb Hct MCV MCH MCHC RDW RDW Differential Plt Count MPV Immature Gran % (Auto) Neut % (Auto) Lymph % (Auto) Baxter % (Auto) Eos % (Auto) Baso % (Auto) Absolute Neuts (auto) Absolute Lymphs (auto) Total Counted Specimen Type Sample Site pH Bicarbonate Actual POC Total CO2 Base Excess O2 Saturation O2 % ABG pCO2 ABG pO2 Larry Test Respiration Rate O2 Delivery Device EPAP IPAP Blood Gas Notified Whom Blood Gas Notified Time Sodium 135 L Potassium 3.8 Chloride 100 Carbon Dioxide 31.0 Anion Gap 4 L BUN 10 Creatinine 0.68 Estim Creat Clear Calc 46.43 Est GFR (MDRD) Af Amer 110 Est GFR (MDRD) Non-Af 91 BUN/Creatinine Ratio 14.7 Glucose 125 H Calcium 8.7 B-Natriuretic Peptide Assessment/Plan Patient seen and examined independently. Data reviewed. I agree with the above note by the physician criminal legal assistant. 1. severe sepsis 2/2 bacteremia and pneumonia. * improved * follow up cultures and adjust abx accordingly 2. Group B strep bacteremia * positive on 02/06, cultures on 02/07 still pending * possibly due to pneumonia * repeat BCx * echo showed no vegetation * change abx to CTX 2g/d (will give an additional 1g for total of 2 today) 3. Pneumonia * likely Group B strep * does not appear embolic on CT * pulmonary toilet 4. Acute hypoxic and hypercapnic respiratory failure * requiring BiPAP * improving * wean BiPAP as tolerated * due to pneumonia, unclear if underlying lung dz 5. HFpEF * compensated at this time. * resume lasix 6. pAfib * stable * continue Dig, carvedilol * anticoagulated with rivaroxaban 7. VTE proph: Low risk as already on anticoagulation. Code Visit Inpatient E&M: 21296 Subs Hosp L3
--- NOTE | 2019-02-08 14:55 | CPS ---
Patient placed back on BiPAP.
--- NOTE | 2019-02-08 15:05 | CASEMGMT ---
TYREE spoke with patient and her plan is to return to [facility]. She said her son will transport her via private vehicle. Green sheet on chart. Neyda HEART MSW
[2019-02-08] MEDS: Rivaroxaban 20 MG Tablet PO (17:02)
[2019-02-08] MEDS: Atorvastatin Calcium 20 MG Tablet PO (22:21)
[2019-02-08] MEDS: Amitriptyline 100 MG Tablet PO (22:21)
[2019-02-09] VITALS (19 sets, daily range): BP systolic 130–162; BP diastolic 53–74; PULSE 62–80; RESP 12–22; TEMP 36.4–36.7; O2SAT 93–98
[2019-02-09] MEDS: Ipratropium/Albuterol Sulfate 3 ML AMPUL.NEB INHALATION ×4 (01:00→20:00)
[2019-02-09] MEDS: ALPRAZolam 0.5 MG Tablet 1 MG PO ×3 (06:19→21:46)
[2019-02-09] MEDS: Sucralfate 1 GM Tablet PO ×4 (06:19→21:45)
[2019-02-09 08:12] LABS: Absolute Lymphocyte Count 1.35 X10^3/ul (0.83-4.51); Absolute Neutrophil Count 6.3 X10^3/uL (2.0-7.7); Basophil# 0.01 X10^3/uL; Basophil% 0.1 % (0-1); Eosinophil# 0.02 X10^3/uL; Eosinophils% 0.2 % (0-5); Hematocrit 26.9 % (37-47); Hemoglobin 8.3 g/dl (12.0-15.0); Lymphocyte # 1.35 X10^3/ul (4.0); Lymphocyte % 16.1 % (19-41); Mean Corp Hgb Conc 30.9 g/gl (32-36); Mean Corpuscular Hgb 24.2 pg (27.0-32.0); Mean Corpuscular Volume 78.4 fL (81-99); Mean Platelet Vol. 9.9 fl (6.2-12.0); Monocyte# 0.63 X10^3/uL; Monocyte% 7.5 % (0-10); Neutrophil # 6.33 X10^3/uL (2.7-7.7); Neutrophil % 75.4 % (47-70); Platelet Count 182 K/mm3 (150-450); RBC Distribution Width CV 16.7 % (11.6-14.6); RBC Distribution Width SD 47.8 fl (35.1-43.9); Red Blood Count 3.43 M/mm3 (4.2-5.4); White Blood Count 8.4 K/mm3 (4.4-11.0)
[2019-02-09 08:13] LABS: POSITIVE COUNT NO; POSITIVE DIFFERENTIAL NO; POSITIVE MORPHOLOGY NO
[2019-02-09 08:14] LABS: Anion Gap 5 (5-15); BUN 13 mg/dL (7-18); BUN/Creat Ratio 22.7 RATIO (10-20); Calcium,Total 9.4 mg/dL (8.5-10.1); Chloride 103 mmol/L (98-107); Creatinine, Serum 0.57 mg/dL (0.55-1.02); EST Glomerular Filtration Rate 110 mL/min (>60); Est Glom Filt Rate - Afr Amer 134 mL/min (>60); Estimated Creatinine Clearance 46.43 ml/min; Glucose 127 mg/dL (74-106); Potassium 3.8 mmol/L (3.5-5.1); Sodium Level 139 mmol/L (136-145)
[2019-02-09] MEDS: Gabapentin 600 MG Tablet PO ×3 (08:22→17:30)
[2019-02-09] MEDS: Pantoprazole Sodium 40 MG Tablet PO (08:22)
[2019-02-09] MEDS: Aspirin E.C. 81 MG Tablet PO (08:22)
[2019-02-09] MEDS: Iron Polysaccharide Complex 150 MG CAPSULE PO (08:22)
[2019-02-09] MEDS: DULoxetine Hcl 60 MG Capsule PO ×2 (10:36→21:46)
[2019-02-09] MEDS: Carvedilol 25 MG Tablet PO ×2 (10:36→21:45)
[2019-02-09] MEDS: Digoxin 125 MCG Tablet PO (10:37)
[2019-02-09] MEDS: Furosemide 40 MG Tablet PO (10:38)
[2019-02-09] MEDS: guaiFENesin 1,200 MG Tablet 1200 MG PO ×2 (10:39→21:46)
[2019-02-09] MEDS: amLODIPine 10 MG Tablet PO (10:39)
[2019-02-09] MEDS: Clopidogrel Bisulfate 75 MG Tablet PO (10:39)
[2019-02-09] MEDS: predniSONE 20 MG Tablet 40 MG PO (10:40)
[2019-02-09] MEDS: Acetaminophen 325 MG Tablet 650 MG PO (10:50)
--- NOTE | 2019-02-09 13:16 | PN_ITS ---
<Jose Alejandro Priest - Last Filed: 02/09/19 13:16> Patient Problems: Active and Suspected Problems (Last Updated 02/06/19 @ 15:11 by Rich Roman MD) Hypokalemia (Acute) Severe sepsis (Acute) Bacteremia due to group B Streptococcus (Acute) Pneumonia (Acute) Subjective: Pt refused prednisone today and became very tearful about taking it as she states it made her gain 100 pounds when she was chronically on it. I reassured her that she would be on a short course and she was agreeable. She is still SOB. No further fever/chills. Dry cough ongoing. She was up to the chair today and is ambulating with the walker. Still SOB when up to the bathroom. - Physical Exam General: Alert, Oriented x3, Cooperative HEENT: Atraumatic, PERRLA, EOMI, Normocephalic Neck: Supple, No JVD, Negative Carotid Bruits Lungs: No rales, Wheezes Cardiovascular: Regular rate, No murmurs Abdomen: Bowel Sounds Present, Soft, Non Tender Extremities: No edema, Capillary Refill Less than 3 Seconds Skin: No rashes, No breakdown Musculoskeletal: No Tenderness to Palpation of Joints or Extremities Neurological: Cranial nerves II-XII grossly intact Psych/Mental Status: Normal Affect, Appropriate, Alert and oriented to time, place, person, mood and affect Vital Signs Temp Pulse Resp BP Pulse Ox 98.1 F 64 14 136/60 H 93 02/09/19 08:17 02/09/19 11:30 02/09/19 08:17 02/09/19 08:17 02/09/19 08:17 Oxygen Flow Rate (L/min) 5 Oxygen Delivery Method Nasal Cannula Weight: 202 lb 6.15 oz Body Mass Index (BMI) 33.7 Intake and Output for Last 24 Hours 02/07/19 02/08/19 02/09/19 23:59 23:59 23:59 Intake Total 1707.4 / 1707.4 709 / 709 540.5 / 540.5 Balance 1707.4 / 1707.4 709 / 709 540.5 / 540.5 Microbiology Past 72 Hours 02/06/19 17:30 Gram Stain - Final Sputum, Expectorated/Coughed Respiratory Culture - Final Presumptive C albicans Mixed Mayte 02/06/19 17:50 Urine Culture - Final Urine, Clean Catch Mixed Gram Positive Organisms 02/06/19 12:50 Blood Culture - Preliminary Blood Culture (Wb) - Left Hand Streptococcus agalactiae (B) 02/06/19 12:20 Bacteria Detection (PCR) - Final Blood Culture (Wb) - Anticubital Right Streptococcus agalactiae (B) Blood Culture - Final Streptococcus agalactiae (B) 02/07/19 11:29 Influenza Types A,B Direct FA (MAX) - Final Mucosa - Nasopharyngeal 02/06/19 17:50 Streptococcus pneumoniae Antigen (M - Final Urine, Random 02/06/19 17:50 Legionella Antigen - Final Urine, Random Laboratory Tests Past 24 Hrs 02/09/19 02/09/19 07:36 07:36 WBC 8.4 RBC 3.43 L Hgb 8.3 L Hct 26.9 L MCV 78.4 L MCH 24.2 L MCHC 30.9 L RDW 16.7 H RDW Differential 47.8 H Plt Count 182 MPV 9.9 Immature Gran % (Auto) 0.700 Neut % (Auto) 75.4 H Lymph % (Auto) 16.1 L [place] % (Auto) 7.5 Eos % (Auto) 0.2 Baso % (Auto) 0.1 Absolute Neuts (auto) 6.3 Absolute Lymphs (auto) 1.35 Total Counted Not Reportable Sodium 139 Potassium 3.8 Chloride 103 Carbon Dioxide 31.0 Anion Gap 5 BUN 13 Creatinine 0.57 Estim Creat Clear Calc 46.43 Est GFR (MDRD) Af Amer 134 Est GFR (MDRD) Non-Af 110 BUN/Creatinine Ratio 22.7 H Glucose 127 H Calcium 9.4 Medical Necessity - Tobacco Use Smoking Status: Current some day smoker Tobacco Use: Cigarettes Assessment/Plan All Active Problems (Last Updated 02/06/19 @ 15:11 by Rich Roman MD) Hypokalemia (Acute) Severe sepsis (Acute) Bacteremia due to group B Streptococcus (Acute) Pneumonia (Acute) 1. Acute severe sepsis, bacteremia, with acute hypoxic resp failure - 2/2 CAP - Continues to improve. Repeat blood cultures no growth at 48 hours. urine ag neg. Continue rocephin. TTE was unremarkable for endocarditis however limited study. No fever for the last 24 hours. To need BiPAP at night, and wean to daily O2. 2. Microcytic anemia - iron deficiency. Replete. Check stool occult blood. no hemoptysis. Hx stomach ulcer, on PPI, carafate, also on xarelto, aspirin, plavix. Platelets normal. 3. Gastric ulcer - as above continue ppi/carafate. 4. PAfib, hx DVT - xarelto. On digoxin, coreg 5. Hx SLE - not on maintenance therapy - no arthritic complaints. 6. HLD/HTN/Hx CAD with prior CABGx4 - continue home meds. 7. PVD - pt of Dr. Arauz. Planning for o/p carotid endarterectomy. 8. Hx diastolic CHF - hold lasix. no evidence of acute failure. 9. Chronic pain - home elavil, neurontin, cymbalta Discharge planning: PT OT, patient very weak, may have additional therapy needs at discharge. We will need to clarify her oxygen needs at discharge. She will likely need referral to pulmonology as an outpatient for COPD work-up. DVT ppx: [email or web address] This patient was seen by Jose Alejandro Priest PA-C under the supervision of Dr. Rodriguez. <Heriberto Rodriguez - Last Filed: 02/09/19 14:42> Subjective: Feeling somewhat better. Anxious about going back to her assisted living. - Physical Exam General: Alert, Cooperative HEENT: Atraumatic, Normocephalic Neck: No Nodes, Thyroid Normal Size and Texture Lungs: No rales, Wheezes Cardiovascular: Regular rate, Regular Rhythm, Normal S1, Normal S2, No murmurs Abdomen: Bowel Sounds Present, Soft, Non Tender, Non-Distended, No Hepato- splenomegaly Extremities: No edema, No Calf Tenderness Skin: No rashes, No breakdown Psych/Mental Status: Normal Affect, Appropriate Vital Signs Temp Pulse Resp BP Pulse Ox 36.6 C 66 18 130/74 H 93 02/09/19 14:18 02/09/19 14:18 02/09/19 14:18 02/09/19 14:18 02/09/19 14:18 Oxygen Flow Rate (L/min) 5 Oxygen Delivery Method Nasal Cannula Weight: 91.8 kg Body Mass Index (BMI) 33.7 Intake and Output for Last 24 Hours 07/11/19 07/12/19 07/13/19 23:59 23:59 23:59 Intake Total 1707.4 / 1707.4 709 / 709 540.5 / 540.5 Balance 1707.4 / 1707.4 709 / 709 540.5 / 540.5 Microbiology Past 72 Hours 02/07/19 13:45 Blood Culture - Preliminary Blood Culture (Wb) - Anticubital Left No growth in 48 hours. 02/07/19 13:35 Blood Culture - Preliminary Blood Culture (Wb) - Right Hand No growth in 48 hours. 02/06/19 17:30 Gram Stain - Final Sputum, Expectorated/Coughed Respiratory Culture - Final Presumptive C albicans Mixed Mayte 02/06/19 17:50 Urine Culture - Final Urine, Clean Catch Mixed Gram Positive Organisms 02/06/19 12:50 Blood Culture - Preliminary Blood Culture (Wb) - Left Hand Streptococcus agalactiae (B) 02/06/19 12:20 Bacteria Detection (PCR) - Final Blood Culture (Wb) - Anticubital Right Streptococcus agalactiae (B) Blood Culture - Final Streptococcus agalactiae (B) 02/07/19 11:29 Influenza Types A,B Direct FA (MAX) - Final Mucosa - Nasopharyngeal 02/06/19 17:50 Streptococcus pneumoniae Antigen (M - Final Urine, Random 02/06/19 17:50 Legionella Antigen - Final Urine, Random Laboratory Tests Past 24 Hrs 02/09/19 02/09/19 07:36 07:36 WBC 8.4 RBC 3.43 L Hgb 8.3 L Hct 26.9 L MCV 78.4 L MCH 24.2 L MCHC 30.9 L RDW 16.7 H RDW Differential 47.8 H Plt Count 182 MPV 9.9 Immature Gran % (Auto) 0.700 Neut % (Auto) 75.4 H Lymph % (Auto) 16.1 L [place] % (Auto) 7.5 Eos % (Auto) 0.2 Baso % (Auto) 0.1 Absolute Neuts (auto) 6.3 Absolute Lymphs (auto) 1.35 Total Counted Not Reportable Sodium 139 Potassium 3.8 Chloride 103 Carbon Dioxide 31.0 Anion Gap 5 BUN 13 Creatinine 0.57 Estim Creat Clear Calc 46.43 Est GFR (MDRD) Af Amer 134 Est GFR (MDRD) Non-Af 110 BUN/Creatinine Ratio 22.7 H Glucose 127 H Calcium 9.4 Assessment/Plan Patient seen and examined independently. Data reviewed. I agree with the above note by the physician customer relations assistant. 1. severe sepsis 2/2 bacteremia and pneumonia. * improved * follow up cultures and adjust abx accordingly 2. Group B strep bacteremia * positive on 02/06, cultures on 02/07 negative * possibly due to pneumonia * repeat BCx * echo showed no vegetation * change abx to CTX 2g/d 3. Pneumonia * likely Group B strep * does not appear embolic on CT * pulmonary toilet 4. Acute hypoxic and hypercapnic respiratory failure * requiring BiPAP * improving * wean BiPAP as tolerated * due to pneumonia, unclear if underlying lung dz 5. HFpEF * compensated at this time. * resume lasix 6. pAfib * stable * continue Dig, carvedilol * anticoagulated with rivaroxaban 7. VTE proph: Low risk as already on anticoagulation. 8. Debility: patient will require a SNF before returning to assisted living. Code Visit Inpatient E&M: 57180 Subs Hosp L2
[2019-02-09 15:25] LABS: Ferritin 283 ng/mL (8-252)
[2019-02-09] MEDS: Rivaroxaban 20 MG Tablet PO (17:31)
[2019-02-09] MEDS: oxyCODONE 5 MG Tablet PO (20:45)
[2019-02-09] MEDS: Amitriptyline 100 MG Tablet PO (21:46)
[2019-02-09] MEDS: Atorvastatin Calcium 20 MG Tablet PO (21:46)
[2019-02-10] VITALS (18 sets, daily range): BP systolic 128–158; BP diastolic 47–67; PULSE 58–68; RESP 12–116; TEMP 36.6–36.8; O2SAT 95–99
[2019-02-10] MEDS: Ipratropium/Albuterol Sulfate 3 ML AMPUL.NEB INHALATION ×4 (00:42→18:55)
[2019-02-10] MEDS: ALPRAZolam 0.5 MG Tablet 1 MG PO ×3 (06:14→21:03)
[2019-02-10] MEDS: Sucralfate 1 GM Tablet PO ×4 (06:14→21:03)
[2019-02-10] MEDS: Acetaminophen 325 MG Tablet 650 MG PO (06:14)
[2019-02-10 06:30] LABS: Anion Gap 6 (5-15); BUN 15 mg/dL (7-18); BUN/Creat Ratio 23.5 RATIO (10-20); Calcium,Total 9.2 mg/dL (8.5-10.1); Chloride 99 mmol/L (98-107); Creatinine, Serum 0.64 mg/dL (0.55-1.02); EST Glomerular Filtration Rate 97 mL/min (>60); Est Glom Filt Rate - Afr Amer 118 mL/min (>60); Estimated Creatinine Clearance 46.43 ml/min; Glucose 176 mg/dL (74-106); Potassium 3.8 mmol/L (3.5-5.1); Sodium Level 137 mmol/L (136-145)
[2019-02-10 07:01] LABS: Absolute Lymphocyte Count 1.89 X10^3/ul (0.83-4.51); Absolute Neutrophil Count 6.7 X10^3/uL (2.0-7.7); Basophil# 0.03 X10^3/uL; Basophil% 0.3 % (0-1); Eosinophil# 0.07 X10^3/uL; Eosinophils% 0.7 % (0-5); Hematocrit 28.2 % (37-47); Hemoglobin 8.6 g/dl (12.0-15.0); Lymphocyte # 1.89 X10^3/ul (4.0); Lymphocyte % 19.8 % (19-41); Mean Corp Hgb Conc 30.5 g/gl (32-36); Mean Corpuscular Volume 78.8 fL (81-99); Mean Platelet Vol. 10.6 fl (6.2-12.0); Monocyte# 0.77 X10^3/uL; Monocyte% 8.1 % (0-10); Neutrophil # 6.68 X10^3/uL (2.7-7.7); Neutrophil % 69.8 % (47-70); POSITIVE COUNT NO; POSITIVE DIFFERENTIAL NO; POSITIVE MORPHOLOGY NO; Platelet Count 231 K/mm3 (150-450); RBC Distribution Width CV 16.6 % (11.6-14.6); RBC Distribution Width SD 47.6 fl (35.1-43.9); Red Blood Count 3.58 M/mm3 (4.2-5.4); White Blood Count 9.6 K/mm3 (4.4-11.0)
[2019-02-10] MEDS: predniSONE 20 MG Tablet 40 MG PO (10:07)
[2019-02-10] MEDS: Gabapentin 600 MG Tablet PO ×3 (10:07→17:51)
[2019-02-10] MEDS: Furosemide 40 MG Tablet PO (10:07)
[2019-02-10] MEDS: guaiFENesin 1,200 MG Tablet 1200 MG PO ×2 (10:07→21:03)
[2019-02-10] MEDS: amLODIPine 10 MG Tablet PO (10:07)
[2019-02-10] MEDS: Iron Polysaccharide Complex 150 MG CAPSULE PO (10:08)
[2019-02-10] MEDS: Aspirin E.C. 81 MG Tablet PO (10:08)
[2019-02-10] MEDS: Pantoprazole Sodium 40 MG Tablet PO (10:09)
[2019-02-10] MEDS: DULoxetine Hcl 60 MG Capsule PO ×2 (10:09→21:03)
[2019-02-10] MEDS: Carvedilol 25 MG Tablet PO ×2 (10:10→21:03)
[2019-02-10] MEDS: Digoxin 125 MCG Tablet PO (10:10)
[2019-02-10] MEDS: Clopidogrel Bisulfate 75 MG Tablet PO (10:14)
[2019-02-10] MEDS: 0.9% NaCl Peripheral Flush Adult/Peds IV (10:53)
[2019-02-10] MEDS: oxyCODONE 5 MG Tablet PO ×2 (10:58→19:57)
--- NOTE | 2019-02-10 12:15 | PN_ITS ---
<Jose Alejandro Priest - Last Filed: 02/10/19 12:15> Patient Problems: Active and Suspected Problems (Last Updated 02/06/19 @ 15:11 by Rich Roman MD) Bacteremia due to group B Streptococcus (Acute) Pneumonia (Acute) Subjective: Pt very angry on interview this AM, followed by very tearful concerning her impending discharge from the hospital. She feels that she is no longer useful as she has nobody to take care of anymore and nobody to be with, and that at assisted living she feels like a prisoner and has nothing to do there. Night sweats improved. Ongoing SOB. Cough is still nonproductive. No further fever or chills. Very weak - very resistant to SNF prior to returning to assisted living. - Physical Exam General: Alert, Oriented x3, Cooperative HEENT: Atraumatic, PERRLA, EOMI, Normocephalic Neck: Supple, No JVD, Negative Carotid Bruits Lungs: Clear to auscultation, Diminished Cardiovascular: Regular rate, No murmurs Abdomen: Bowel Sounds Present, Soft, Non Tender Extremities: No edema, Capillary Refill Less than 3 Seconds Skin: No rashes, No breakdown Musculoskeletal: No Tenderness to Palpation of Joints or Extremities Neurological: Cranial nerves II-XII grossly intact Psych/Mental Status: Depressed, Alert and oriented to time, place, person, mood and affect Vital Signs Temp Pulse Resp BP Pulse Ox 98.1 F 61 18 151/56 H 98 02/10/19 10:00 02/10/19 10:10 02/10/19 10:00 02/10/19 10:10 02/10/19 10:00 Oxygen Flow Rate (L/min) 4 Oxygen Delivery Method Nasal Cannula Weight: 202 lb 6.15 oz Body Mass Index (BMI) 33.7 Intake and Output for Last 24 Hours 02/08/19 02/09/19 02/10/19 23:59 23:59 23:59 Intake Total 709 / 709 1390.5 / 1630.5 540 / 540 Balance 709 / 709 1390.5 / 1630.5 540 / 540 Microbiology Past 72 Hours 02/06/19 17:30 Gram Stain - Final Sputum, Expectorated/Coughed Respiratory Culture - Final Presumptive C albicans Mixed Mayte 02/09/19 12:40 Stool Occult Blood (MAX) - Final Stool Occult Blood Positive 02/07/19 13:45 Blood Culture - Preliminary Blood Culture (Wb) - Anticubital Left No growth in 48 hours. 02/07/19 13:35 Blood Culture - Preliminary Blood Culture (Wb) - Right Hand No growth in 48 hours. 02/06/19 17:50 Urine Culture - Final Urine, Clean Catch Mixed Gram Positive Organisms 02/06/19 12:50 Blood Culture - Preliminary Blood Culture (Wb) - Left Hand Streptococcus agalactiae (B) 02/06/19 12:20 Bacteria Detection (PCR) - Final Blood Culture (Wb) - Anticubital Right Streptococcus agalactiae (B) Blood Culture - Final Streptococcus agalactiae (B) 02/07/19 11:29 Influenza Types A,B Direct FA (MAX) - Final Mucosa - Nasopharyngeal Laboratory Tests Past 24 Hrs 02/09/19 02/10/19 02/10/19 07:36 05:46 05:46 WBC 9.6 RBC 3.58 L Hgb 8.6 L Hct 28.2 L MCV 78.8 L MCH 24.0 L MCHC 30.5 L RDW 16.6 H RDW Differential 47.6 H Plt Count 231 MPV 10.6 Immature Gran % (Auto) 1.300 H Neut % (Auto) 69.8 Lymph % (Auto) 19.8 [place] % (Auto) 8.1 Eos % (Auto) 0.7 Baso % (Auto) 0.3 Absolute Neuts (auto) 6.7 Absolute Lymphs (auto) 1.89 Total Counted Not Reportable Sodium 137 Potassium 3.8 Chloride 99 Carbon Dioxide 32.0 Anion Gap 6 BUN 15 Creatinine 0.64 Estim Creat Clear Calc 46.43 Est GFR (MDRD) Af Amer 118 Est GFR (MDRD) Non-Af 97 BUN/Creatinine Ratio 23.5 H Glucose 176 H Calcium 9.2 Ferritin 283 H Medical Necessity - Tobacco Use Smoking Status: Current some day smoker Tobacco Use: Cigarettes Assessment/Plan All Active Problems (Last Updated 02/06/19 @ 15:11 by Rich Roman MD) Hypokalemia (Resolved) Severe sepsis (Resolved) Bacteremia due to group B Streptococcus (Acute) Pneumonia (Acute) 1. Acute severe sepsis, bacteremia, with acute hypoxic resp failure - 2/2 CAP - Continues to improve. Repeat blood cultures negative. urine ag neg. Continue rocephin. TTE was unremarkable for endocarditis however limited study. No fever for the last 24 hours. Bipap qhs. Wean daily o2. On 4lpm prn at assisted living. Likely transition to extended course of PO abx at vt. 2. Microcytic anemia - Hx stomach ulcer, on PPI, carafate, also on xarelto, aspirin, plavix. Platelets normal. -Her Hgb is stable, however Hemoccult is +. -She will need outpatient endoscopy and GI follow up to assess the source of her bleeding -As her blood counts are stable will defer discontinuing her blood thinning agents listed above. 3. Gastric ulcer - as above continue ppi/carafate. 4. PAfib, hx DVT - xarelto. On digoxin, coreg 5. Hx SLE - not on maintenance therapy - no arthritic complaints. 6. HLD/HTN/Hx CAD with prior CABGx4 - continue home meds. 7. PVD - pt of Dr. Arauz. Planning for o/p carotid endarterectomy. 8. Hx diastolic CHF - hold lasix. no evidence of acute failure. 9. Chronic pain - home elavil, neurontin, cymbalta Discharge planning: PT OT, patient very weak, may have additional therapy needs at discharge. We will need to clarify her oxygen needs at discharge. She will likely need referral to pulmonology as an outpatient for COPD work-up. Needs referral to GI concerning + hemoccult at [place]. DVT ppx: xarelto This patient was seen by Jose Alejandro Priest PA-C under the supervision of Dr. Rodriguez. <Heriberto Rodriguez - Last Filed: 02/10/19 12:28> Subjective: Feeling better. Breathing better. - Physical Exam General: Alert, Cooperative HEENT: Atraumatic, Normocephalic Oral: Moist Mucosa, No Gingival or Mucosal Lesions/ Ulcerations Lungs: Clear to auscultation, Normal air movement, No rhonchi, No wheeze, No rales, Diminished Cardiovascular: Regular rate, Regular Rhythm, Normal S1, Normal S2 Abdomen: Bowel Sounds Present, Soft, Non Tender Skin: No rashes, No breakdown Psych/Mental Status: Appropriate, Flat Affect Vital Signs Temp Pulse Resp BP Pulse Ox 36.7 C 61 18 151/56 H 98 02/10/19 10:00 02/10/19 10:10 02/10/19 10:00 02/10/19 10:10 02/10/19 10:00 Oxygen Flow Rate (L/min) 4 Oxygen Delivery Method Nasal Cannula Weight: 91.8 kg Body Mass Index (BMI) 33.7 Intake and Output for Last 24 Hours 02/08/19 02/09/19 02/10/19 23:59 23:59 23:59 Intake Total 709 / 709 1390.5 / 1630.5 540 / 540 Balance 709 / 709 1390.5 / 1630.5 540 / 540 Microbiology Past 72 Hours 02/06/19 17:30 Gram Stain - Final Sputum, Expectorated/Coughed Respiratory Culture - Final Presumptive C albicans Mixed Mayte 02/09/19 12:40 Stool Occult Blood (MAX) - Final Stool Occult Blood Positive 02/07/19 13:45 Blood Culture - Preliminary Blood Culture (Wb) - Anticubital Left No growth in 48 hours. 02/07/19 13:35 Blood Culture - Preliminary Blood Culture (Wb) - Right Hand No growth in 48 hours. 02/06/19 17:50 Urine Culture - Final Urine, Clean Catch Mixed Gram Positive Organisms 02/06/19 12:50 Blood Culture - Preliminary Blood Culture (Wb) - Left Hand Streptococcus agalactiae (B) 02/06/19 12:20 Bacteria Detection (PCR) - Final Blood Culture (Wb) - Anticubital Right Streptococcus agalactiae (B) Blood Culture - Final Streptococcus agalactiae (B) 02/07/19 11:29 Influenza Types A,B Direct FA (MAX) - Final Mucosa - Nasopharyngeal Laboratory Tests Past 24 Hrs 02/09/19 02/10/19 02/10/19 07:36 05:46 05:46 WBC 9.6 RBC 3.58 L Hgb 8.6 L Hct 28.2 L MCV 78.8 L MCH 24.0 L MCHC 30.5 L RDW 16.6 H RDW Differential 47.6 H Plt Count 231 MPV 10.6 Immature Gran % (Auto) 1.300 H Neut % (Auto) 69.8 Lymph % (Auto) 19.8 [place] % (Auto) 8.1 Eos % (Auto) 0.7 Baso % (Auto) 0.3 Absolute Neuts (auto) 6.7 Absolute Lymphs (auto) 1.89 Total Counted Not Reportable Sodium 137 Potassium 3.8 Chloride 99 Carbon Dioxide 32.0 Anion Gap 6 BUN 15 Creatinine 0.64 Estim Creat Clear Calc 46.43 Est GFR (MDRD) Af Amer 118 Est GFR (MDRD) Non-Af 97 BUN/Creatinine Ratio 23.5 H Glucose 176 H Calcium 9.2 Ferritin 283 H Assessment/Plan Patient seen and examined independently. Data reviewed. I agree with the above note by the physician assistant athletic trainer. 1. severe sepsis * 2/2 bacteremia and pneumonia. * improved 2. Group B strep bacteremia * positive on 02/06, cultures on 02/07 negative * possibly due to pneumonia * repeat BCx * echo showed no vegetation * CTX 2g/d started on 02/08. Change to amoxicillin 500 TID upon discharge and treat through 02/18. 3. Pneumonia * likely due to Group B strep * does not appear embolic on CT * pulmonary toilet 4. Acute hypoxic and hypercapnic respiratory failure * requiring BiPAP * improving * wean BiPAP as tolerated * due to pneumonia, unclear if underlying lung dz * follow up with pulmonology as outpt. 5. HFpEF * compensated at this time. * resume lasix 6. pAfib * stable * continue Dig, carvedilol * anticoagulated with rivaroxaban 7. VTE proph: Low risk as already on anticoagulation. 8. Debility: patient will require a SNF before returning to assisted living. Code Visit Inpatient E&M: 19155 Subs Hosp L2
[2019-02-10] MEDS: Rivaroxaban 20 MG Tablet PO (17:51)
[2019-02-10] MEDS: Atorvastatin Calcium 20 MG Tablet PO (21:03)
[2019-02-10] MEDS: Amitriptyline 100 MG Tablet PO (21:04)
--- NOTE | 2019-02-10 23:16 | CPS ---
decreased FiO2 to 30%
[2019-02-11] VITALS (13 sets, daily range): BP systolic 150–155; BP diastolic 50–60; PULSE 56–72; RESP 12–18; TEMP 36.1–36.8; O2SAT 93–99
[2019-02-11] MEDS: Ipratropium/Albuterol Sulfate 3 ML AMPUL.NEB INHALATION ×2 (01:50→13:05)
[2019-02-11] MEDS: Acetaminophen 325 MG Tablet 650 MG PO ×2 (01:53→10:57)
[2019-02-11 06:08] LABS: Hematocrit 30.5 % (37-47); Hemoglobin 9.5 g/dl (12.0-15.0)
[2019-02-11] MEDS: ALPRAZolam 0.5 MG Tablet 1 MG PO ×2 (06:43→14:27)
[2019-02-11] MEDS: Sucralfate 1 GM Tablet PO ×2 (06:52→18:04)
[2019-02-11] MEDS: Gabapentin 600 MG Tablet PO ×2 (10:38→14:27)
[2019-02-11] MEDS: DULoxetine Hcl 60 MG Capsule PO (10:38)
[2019-02-11] MEDS: Aspirin E.C. 81 MG Tablet PO (10:38)
[2019-02-11] MEDS: Iron Polysaccharide Complex 150 MG CAPSULE PO (10:38)
[2019-02-11] MEDS: predniSONE 20 MG Tablet 40 MG PO (10:38)
[2019-02-11] MEDS: Carvedilol 25 MG Tablet PO (10:38)
[2019-02-11] MEDS: Furosemide 40 MG Tablet PO (10:39)
[2019-02-11] MEDS: amLODIPine 10 MG Tablet PO (10:39)
[2019-02-11] MEDS: Pantoprazole Sodium 40 MG Tablet PO (10:39)
[2019-02-11] MEDS: guaiFENesin 1,200 MG Tablet 1200 MG PO (10:39)
[2019-02-11] MEDS: Clopidogrel Bisulfate 75 MG Tablet PO (10:39)
[2019-02-11] MEDS: Digoxin 125 MCG Tablet PO (10:39)
[2019-02-11] MEDS: 0.9% NaCl Peripheral Flush Adult/Peds IV (10:56)
--- NOTE | 2019-02-11 11:12 | DCINST_ITS ---
You will use the following diet at home:: Cardiac Your food should be the consistency of: Regular Your liquids should be the consistency of: Regular/Thin Discharge Activity: Return to Normal Activity Allergies/Adverse Reactions: Allergies adhesive tape Allergy (Unknown, Verified 02/06/19 12:11) Unknown metoprolol [From Toprol XL] Allergy (Unknown, Verified 02/06/19 12:11) Unknown polymyxin B Allergy (Unknown, Verified 02/06/19 12:11) Unknown Sulfa (Sulfonamide Antibiotics) Allergy (Unknown, Verified 02/06/19 12:11) Swelling latex Allergy (Verified 02/06/19 12:11) Unknown Medications to take at Discharge Amitriptyline HCl [Elavil] 100 mg PO QHS 11/26/13 Atorvastatin Calcium [Lipitor] 20 mg PO QHS 04/18/14 Carvedilol [Coreg (Beta Jere)] 25 mg PO BID 04/18/14 Clopidogrel Bisulfate [Plavix] 75 mg PO DAILY 04/18/14 Aspirin [Adult Low Dose Aspirin EC] 81 mg PO DAILY 09/09/15 Potassium Chloride [K-Dur] 20 meq PO BID 12/18/15 Rivaroxaban [Xarelto] 20 mg PO DAILY 02/19/16 oxycodone-acetaminophen 7.5 mg-325 mg tablet 1 tab PO Q8H PRN tab 04/20/18 amlodipine 10 mg tablet 10 mg PO DAILY 01/14/19 cholecalciferol (vitamin D3) 50,000 unit capsule 50,000 unit PO TUTH cap 01/14/19 gabapentin 600 mg tablet 600 mg PO TIDCM tab 01/14/19 ALPRAZolam [Xanax] 1 mg PO TID 02/06/19 Digoxin [Lanoxin] 125 mcg PO DAILY 02/06/19 Duloxetine HCl 60 mg PO BID 02/06/19 Furosemide 40 mg PO DAILY 02/06/19 Acetaminophen [Tylenol Tablet] 650 mg PO Q6H PRN PRN tablet 02/11/19 Albuterol Aerosols [Ventolin Aerosols] 2.5 mg INHALATION Q6H PRN PRN #120 vial.neb. 02/11/19 Albuterol IH (ProAir) [Proair Hfa] 1 puff INHALATION Q4H PRN PRN #1 inhaler 02/11/19 Cefdinir [Omnicef [equiv]] 300 mg PO Q12H #18 cap 02/11/19 Guaifenesin [Mucinex] 1,200 mg PO BID tablet 02/11/19 Iron Polysaccharide Complex [Ferrex 150] 150 mg PO DAILYCM #30 cap 02/11/19 Pantoprazole Sodium [Protonix] 40 mg PO BID #60 tab 02/11/19 Sucralfate 1 g PO ACHS #0 tab 02/11/19 predniSONE tablet 40 mg PO DAILY@0800 #2 tab 02/11/19 The following prescriptions were given: Iron Polysaccharide Complex [Ferrex 150] 150 mg PO DAILYCM #30 cap Transmission Status: Pending to [facility] Cefdinir [Omnicef [equiv]] 300 mg PO Q12H #18 cap Transmission Status: Pending to [facility] predniSONE tablet 40 mg PO DAILY@0800 #2 tab Transmission Status: Pending to [facility] Albuterol IH (ProAir) [Proair Hfa] 1 puff INHALATION Q4H PRN PRN #1 inhaler PRN Reason: Sob &/Or Wheezing Transmission Status: Pending to [facility] Pantoprazole Sodium [Protonix] 40 mg PO BID #60 tab Transmission Status: Pending to [facility] Albuterol Aerosols [Ventolin Aerosols] 2.5 mg INHALATION Q6H PRN PRN #120 vial.neb. PRN Reason: Sob &/Or Wheezing Transmission Status: Pending to [facility] Primary Care Physician: Juan Agee MD [Primary Care Provider] - Please follow up with your Primary Care Physician in: 1-2 weeks Test Results: Test results from this visit will be discussed in further detail at your follow- up appointment, if applicable. Please Follow Up With: Prashant Ferguson MD - Blood in stool. When: 1-2 weeks Please Follow Up With: Shailesh John MD - Suspected COPD When: 2 weeks Please Follow Up With: Ole Arauz MD - PAD When: As directed Please Follow Up With: Davy Bennett MD - Surgical clearance When: As directed Proposed Discharge Date: 02/11/19
--- NOTE | 2019-02-11 11:57 | PHA.DC.MR ---
Pharmacy Service has performed discharge medication reconciliation for this patient upon discharge to [facility]. The patient's discharge medication list was reviewed for discrepancies and discrepancies were resolved. Home Medications Amitriptyline HCl [Elavil] 100 mg PO QHS 11/26/13 Atorvastatin Calcium [Lipitor] 20 mg PO QHS 04/18/14 Carvedilol [Coreg (Beta Jere)] 25 mg PO BID 04/18/14 Clopidogrel Bisulfate [Plavix] 75 mg PO DAILY 04/18/14 Aspirin [Adult Low Dose Aspirin EC] 81 mg PO DAILY 09/09/15 Potassium Chloride [K-Dur] 20 meq PO BID 12/18/15 Rivaroxaban [Xarelto] 20 mg PO DAILY 02/19/16 oxycodone-acetaminophen 7.5 mg-325 mg tablet 1 tab PO Q8H PRN tab 04/20/18 amlodipine 10 mg tablet 10 mg PO DAILY 01/14/19 cholecalciferol (vitamin D3) 50,000 unit capsule 50,000 unit PO TUTH cap 01/14/19 gabapentin 600 mg tablet 600 mg PO TIDCM tab 01/14/19 ALPRAZolam [Xanax] 1 mg PO TID 02/06/19 Digoxin [Lanoxin] 125 mcg PO DAILY 02/06/19 Duloxetine HCl 60 mg PO BID 02/06/19 Furosemide 40 mg PO DAILY 02/06/19 Acetaminophen [Tylenol Tablet] 650 mg PO Q6H PRN PRN tab 02/11/19 Albuterol Aerosols [Ventolin Aerosols] 2.5 mg INHALATION Q6H PRN PRN #120 vial.neb. 02/11/19 Albuterol IH (ProAir) [Proair Hfa] 1 puff INHALATION Q4H PRN PRN #1 inhaler 02/11/19 Cefdinir [Omnicef [equiv]] 300 mg PO Q12H #18 cap 02/11/19 Guaifenesin [Mucinex] 1,200 mg PO BID tab 02/11/19 Iron Polysaccharide Complex [Ferrex 150] 150 mg PO DAILYCM #30 cap 02/11/19 Pantoprazole Sodium [Protonix] 40 mg PO BID #60 tab 02/11/19 Sucralfate 1 g PO ACHS #0 tab 02/11/19 predniSONE tablet 40 mg PO DAILY@0800 #2 tab 02/11/19
--- NOTE | 2019-02-11 12:08 | CASEMGMT ---
Pt states that she has [facility] for home oxygen and she states that she has tanks at home but they are empty and she states that she was on 4 liters at home. Per Dario at [facility], pt's order is for 2-3liters continuous at home and he is made aware at this time that pt will need a tank at discharge as hers are empty and that they will be receiving new order for nebulizer. Dario states ' well, it will be awhile until we can get a tank out there, make sure the pt is aware.' Anel BARFIELD aware at this time about tank timing and is also aware that pt will need to be tested on the 3 liters oxygen on ra and ambulated on 3liters as well, voices understanding. Per Taylor CARLSON, pt will also need PT/OT at the assisted living and he will place this on discharge instructions at this time. Kiya CLEMENTS aware, voices understanding. Geneva BARFIELD CM
--- NOTE | 2019-02-11 12:24 | CASEMGMT ---
Patient is read for discharge. TYREE faxed d/c instructions to [facility]. LICO CM is arranging a nebulizer and updates O2 order. Neyda HEART MSW
--- NOTE | 2019-02-11 13:07 | PCM.DC.SUM ---
<Jose Alejandro Priest - Last Filed: 02/11/19 13:07> Discharge Date and Diagnosis Date of Admission: 02/06/19 Date of Discharge: 02/11/19 - Primary Discharge Diagnosis Acute sepsis with bacteremia 2/2 CAP 2/2 Group B strep (Strep agelactiae) Acute on chronic hypoxic respiratory failure Microcytic anemia with positive Hemoccult stool, iron deficiency Paroxysmal atrial fibrillation History of DVT History of SLE History of CAD, hyperlipidemia hypertension History of PVD Suspected underlying COPD History of chronic diastolic heart failure Chronic pain syndrome - Secondary Discharge Diagnosis Chronic Problems (Last Updated 02/06/19 @ 15:11 by Rich Roman MD) Abnormal stress test (Chronic) Essential hypertension (Chronic) Chronic diastolic (congestive) heart failure (Chronic) Paroxysmal atrial fibrillation (Chronic) Atherosclerotic heart disease of [place] coronary artery without angina pectoris (Chronic) Peripheral neuropathy (Chronic) Hypothyroidism (Chronic) Hyperlipidemia (Chronic) SLE (systemic lupus erythematosus) (Chronic) 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 Left ventricular systolic function is normal. The estimated ejection fraction is 65 %. The left atrium is mildly enlarged. There is mild mitral annular calcification. Extension of the mitral annular calcification onto the posterior mitral valve leaflet. Mild diffuse mitral valve thickening. Mild focal mitral valve calcification of the anterior leaflet. Mild-Moderate (1-2+) mitral valve insufficiency. Mild tricuspid valve insufficiency. Moderate focal aortic valve calcification. Calcified aortic root. Right ventricular systolic pressure estimated to be 42 mmHg. Unable to assess diastolic dysfunction. Comment: No obvious intracardiac mass lesion / thrombus identified. Consider further evaluation with COOPER if clinically indicated. RAD/Chest PA and Lateral IMPRESSION: Thoracic congestion and mild CHF with a superimposed infiltrate and/or atelectasis in the right upper lobe. CT/Chest WITH Contrast IMPRESSION: Consolidations in the right upper lobe and left lower lobe. Right lower lobe peripherally calcified lesion, of unlikely clinical significance. Coronary artery calcifications. RAD/Chest 1 View (Portable) IMPRESSION: Slight improvement from the previous study. Less airspace disease in the right upper lobe on the minor fissure. Persistent left lower lobe airspace disease. Due to increased pulmonary expansion better definition of well-defined right lower lobe 8 mm pulmonary nodule. Additional comparison is available from a chest CT of February 07, 2019. The calcified pulmonary nodule is well demonstrated at that time. The airspace disease in the left lower lobe in the right upper lobe were demonstrated at that time as well.. Operations: None, - - Local repair of laceration of right extensor hallucis longus tendon Procedures: 2-D Echocardiogram Summary of Care Provided: Hospital course: The patient is a 73 year old F with past medical history as above who presented to the emergency room from assisted living with complaints of weakness, chills, cough, shortness of breath. Patient does use 4 L of oxygen as needed at assisted living, reportedly no prior lung disease, however she does still smoke. In the ER chest x-ray demonstrated pneumonia, she had a fever of 101.7, she also had tachycardia, and elevated lactic acid. She was admitted to the PCU for severe sepsis secondary to community-acquired pneumonia. She was started on Rocephin and azithromycin. She was also provided with aerosols and supportive therapy. She did not have any evidence of heart failure. She did require up to 5 L of oxygen during the day. Later she had worsening of her breathing and required BiPAP at night. Blood cultures were obtained and these came back positive for strep agalactiae. Repeat blood cultures were obtained and these were negative. Azithromycin was discontinued and she was maintained on Rocephin throughout her stay. Her fever and white blood cell count resolved. A TTE was obtained and did not show evidence of endocarditis however it was a limited exam. The patient developed some wheezing and was started on a prednisone burst. She was also notably anemic with microcytosis-iron levels were checked and she was notably iron deficient-she was provided with Venofer and oral iron. Hemoccult blood was positive. Despite her positive Hemoccult blood her hemoglobin actually improved while she was here while being maintained on her Xarelto, aspirin, and Plavix. We advised her to follow-up as an outpatient for upper and lower endoscopy. She does have a history of gastric ulcer for which she is on Protonix and Carafate-at this time we increase the Protonix to twice daily. The patient was transitioned to oral Omnicef to complete a total of 14 days for bacteremia secondary to strep agalactiae and pneumonia. She likely has underlying COPD. She will complete 5 days of prednisone therapy. She was given a prescription for albuterol inhaler and nebulizer treatments. She already has oxygen at assisted living. She did well with PT OT and did not require shelter at this time. She will need to follow-up with her PCP in 1 to 2 weeks, she will need to follow-up with a luggage attendant in 2 weeks for PFTs and polysomnogram as an outpatient, she will also need to follow-up with a surgeon for an upper and lower endoscopy in 1 to 2 weeks as above, she will also need to follow-up with Dr. Arauz her vascular surgeon as she is planning for an outpatient carotid endarterectomy, and she is supposed to follow-up with Dr. Bennett for surgical clearance. She was discharged back to assisted living in stable condition. She will need her hemoglobin monitored carefully. This patient was seen by Jose Alejandro Priest PA-C under the supervision of Doctor Quiros. [] - Physical Exam General: Alert, Oriented x3, Cooperative HEENT: Atraumatic, PERRLA, EOMI, Normocephalic Neck: Supple, No JVD, Negative Carotid Bruits Lungs: Normal air movement, No rales Cardiovascular: Regular rate, No murmurs Abdomen: Bowel Sounds Present, Soft, Non Tender Extremities: No edema, Capillary Refill Less than 3 Seconds Skin: No rashes, No breakdown Musculoskeletal: No Tenderness to Palpation of Joints or Extremities Neurological: Cranial nerves II-XII grossly intact Psych/Mental Status: Normal Affect, Appropriate, Alert and oriented to time, place, person, mood and affect Vital Signs Temp Pulse Resp BP Pulse Ox 97 F L 61 16 153/50 H 98 02/11/19 12:00 02/11/19 12:00 02/11/19 12:00 02/11/19 12:02/11/19 12:00 Oxygen Flow Rate (L/min) 2 Oxygen Delivery Method Nasal Cannula Weight: 202 lb 6.15 oz Body Mass Index (BMI) 33.7 Intake and Output for Last 24 Hours 02/09/19 02/10/19 02/11/19 23:59 23:59 23:59 Intake Total 1390.5 / 1630.5 2140 / 2140 745 / 745 Balance 1390.5 / 1630.5 2140 / 2140 745 / 745 Microbiology Past 72 Hours 02/06/19 17:30 Gram Stain - Final Sputum, Expectorated/Coughed Respiratory Culture - Final Presumptive C albicans Mixed Mayte 02/09/19 12:40 Stool Occult Blood (MAX) - Final Stool Occult Blood Positive 02/07/19 13:45 Blood Culture - Preliminary Blood Culture (Wb) - Anticubital Left No growth in 48 hours. 02/07/19 13:35 Blood Culture - Preliminary Blood Culture (Wb) - Right Hand No growth in 48 hours. 02/06/19 17:50 Urine Culture - Final Urine, Clean Catch Mixed Gram Positive Organisms Laboratory Tests Past 24 Hrs 02/11/19 05:05 Hgb 9.5 L Hct 30.5 L Discharge Diet: Low fat/ Low Cholesterol, 2000 mg Sodium Diet Discharge Activity: Return to Normal Activity Home Medications: Medications to take at Discharge Amitriptyline HCl [Elavil] 100 mg PO QHS 11/26/13 Atorvastatin Calcium [Lipitor] 20 mg PO QHS 04/18/14 Carvedilol [Coreg (Beta Jere)] 25 mg PO BID 04/18/14 Clopidogrel Bisulfate [Plavix] 75 mg PO DAILY 04/18/14 Aspirin [Adult Low Dose Aspirin EC] 81 mg PO DAILY 09/09/15 Potassium Chloride [K-Dur] 20 meq PO BID 12/18/15 Rivaroxaban [Xarelto] 20 mg PO DAILY 02/19/16 oxycodone-acetaminophen 7.5 mg-325 mg tablet 1 tab PO Q8H PRN tab 04/20/18 amlodipine 10 mg tablet 10 mg PO DAILY 01/14/19 cholecalciferol (vitamin D3) 50,000 unit capsule 50,000 unit PO TUTH cap 01/14/19 gabapentin 600 mg tablet 600 mg PO TIDCM tab 01/14/19 ALPRAZolam [Xanax] 1 mg PO TID 02/06/19 Digoxin [Lanoxin] 125 mcg PO DAILY 02/06/19 Duloxetine HCl 60 mg PO BID 02/06/19 Furosemide 40 mg PO DAILY 02/06/19 Acetaminophen [Tylenol Tablet] 650 mg PO Q6H PRN PRN tab 02/11/19 Albuterol Aerosols [Ventolin Aerosols] 2.5 mg INHALATION Q6H PRN PRN #120 vial.neb. 02/11/19 Albuterol IH (ProAir) [Proair Hfa] 1 puff INHALATION Q4H PRN PRN #1 inhaler 02/11/19 Cefdinir [Omnicef [equiv]] 300 mg PO Q12H #18 cap 02/11/19 Guaifenesin [Mucinex] 1,200 mg PO BID tab 02/11/19 Iron Polysaccharide Complex [Ferrex 150] 150 mg PO DAILYCM #30 cap 02/11/19 Pantoprazole Sodium [Protonix] 40 mg PO BID #60 tab 02/11/19 Sucralfate 1 g PO ACHS #0 tab 02/11/19 predniSONE tablet 40 mg PO DAILY@0800 #2 tab 02/11/19 Following Prescrptions Were Given to Patient: Iron Polysaccharide Complex [Ferrex 150] 150 mg PO DAILYCM #30 cap Transmission Status: Received by [facility] Cefdinir [Omnicef [equiv]] 300 mg PO Q12H #18 cap Transmission Status: Received by [facility] predniSONE tablet 40 mg PO DAILY@0800 #2 tab Transmission Status: Received by [facility] Albuterol IH (ProAir) [Proair Hfa] 1 puff INHALATION Q4H PRN PRN #1 inhaler PRN Reason: Sob &/Or Wheezing Transmission Status: Received by [facility] Pantoprazole Sodium [Protonix] 40 mg PO BID #60 tab Transmission Status: [facility] Albuterol Aerosols [Ventolin Aerosols] 2.5 mg INHALATION Q6H PRN PRN #120 vial.neb. PRN Reason: Sob &/Or Wheezing Transmission Status: Received by [facility] Primary Care Physician: Juan Agee MD [Primary Care Provider] - Please follow up with your Primary Care Physician in: 1-2 weeks Please Follow Up With: Prashant Ferguson MD When: 1-2 weeks Please Follow Up With: Shailesh John MD When: 2 weeks Please Follow Up With: Ole Arauz MD When: As directed Please Follow Up With: Davy Bennett MD When: As directed Disposition: Asstd Living/Non-Skill NH Minutes spent on discharge:: 35 Patient Condition:: Stable Medical Necessity - Tobacco Use Smoking Status: Current some day smoker Tobacco Use: Cigarettes Meaningful Use Info Meaningful Use Diagnoses (Choose all that apply): None applicable <PengvinayJin F - Last Filed: 02/11/19 15:35> Discharge Date and Diagnosis - Secondary Discharge Diagnosis Chronic Problems (Last Updated 02/06/19 @ 15:11 by Rich Roman MD) Abnormal stress test (Chronic) Essential hypertension (Chronic) Chronic diastolic (congestive) heart failure (Chronic) Paroxysmal atrial fibrillation (Chronic) Atherosclerotic heart disease of [place] coronary artery without angina pectoris (Chronic) Peripheral neuropathy (Chronic) Hypothyroidism (Chronic) Hyperlipidemia (Chronic) SLE (systemic lupus erythematosus) (Chronic) 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 (Chronic ~11/2013) CABG x4- ELDRIDGE to LAD, SVG to OM, SVG to PDA 12/11 History of rheumatic fever (Chronic) PVD (peripheral vascular disease) (Chronic) Spinal stenosis (Chronic) Hospital Course and Treatment Summary of Care Provided: The patient is a 73 year old F [] - Physical Exam Vital Signs Temp Pulse Resp BP Pulse Ox 97 F L 68 18 153/50 H 93 02/11/19 12:00 02/11/19 13:38 02/11/19 13:38 02/11/19 12:00 02/11/19 14:00 Oxygen Flow Rate (L/min) 2 Oxygen Delivery Method Room Air Weight: 202 lb 6.15 oz Body Mass Index (BMI) 33.7 Intake and Output for Last 24 Hours 02/09/19 02/10/19 02/11/19 23:59 23:59 23:59 Intake Total 1390.5 / 1630.5 2140 / 2140 745 / 745 Balance 1390.5 / 1630.5 2140 / 2140 745 / 745 Microbiology Past 72 Hours 02/06/19 12:50 Blood Culture - Final Blood Culture (Wb) - Left Hand Streptococcus agalactiae (B) 02/06/19 17:30 Gram Stain - Final Sputum, Expectorated/Coughed Respiratory Culture - Final Presumptive C albicans Mixed Mayte 02/09/19 12:40 Stool Occult Blood (MAX) - Final Stool Occult Blood Positive 02/07/19 13:45 Blood Culture - Preliminary Blood Culture (Wb) - Anticubital Left No growth in 48 hours. 02/07/19 13:35 Blood Culture - Preliminary Blood Culture (Wb) - Right Hand No growth in 48 hours. Laboratory Tests Past 24 Hrs 02/11/19 05:05 Hgb 9.5 L Hct 30.5 L Code Visit Addendum: Dr. Quiros I personally examined the patient and reviewed the chart. I agree with the above. 73-year-old female who presented from assisted living with weakness, chills, cough, shortness of breath. She was found to have pneumonia on admission was started on Rocephin and azithromycin. She was also found to have bacteremia in 2 out of 2 bottles with strep agalactiae. She did demonstrate clearance of her blood cultures very quickly and she had an echo which did not show any vegetations. She will be discharged on cefdinir to complete her antibiotic course. She is at baseline 4 L nasal cannula at home and at night and she can be returned on the settings to her assisted living. She did have PT evaluation which did not demonstrate a need for skilled therapy. Also of note she had a Hemoccult positive while here however she has been continued on her Xarelto, aspirin Plavix during this time and her hemoglobin actually increased. Continue with her GI prophylaxis. Inpatient E&M: [id number] [facility]
--- NOTE | 2019-02-11 13:23 | CASEMGMT ---
Per Anel BARFIELD, pt does not need more than 2-3liters continuous at discharge. Referral faxed to [facility] for nebulizer at this time with face sheet, order, neb med order, and documentation. Geneva BARFIELD CM
--- NOTE | 2019-02-12 14:00 | CASEMGMT ---
RN CM DC Phone call Note. Pt returned to ER this am and was dc'd to [facility]. Duc PROCTORN RN ACM
== END 2019-02-11 18:14 | disposition home or self-care (01) | DRG 871 ==
LOC: ED 12:35 → PCU 15:09
PROVIDERS: Internal Medicine; Physician Assistant; Admitting Provider Hospitalist; Emergency Provider Emergency Medicine; Family Provider Family Medicine; PCP Family Medicine; Visit Provider Family Medicine
DX: A40.1 Sepsis due to streptococcus, group B (principal); J96.21 Acute and chronic respiratory failure with hypoxia; J18.9 Pneumonia, unspecified organism; I50.32 Chronic diastolic (congestive) heart failure; J44.0 Chronic obstructive pulmonary disease with (acute) lower respiratory infection; E87.6 Hypokalemia; R65.20 Severe sepsis without septic shock; Z95.1 Presence of aortocoronary bypass graft; I25.10 Atherosclerotic heart disease of native coronary artery without angina pectoris; Z95.820 Peripheral vascular angioplasty status with implants and grafts; I11.0 Hypertensive heart disease with heart failure; E78.5 Hyperlipidemia, unspecified; I48.0 Paroxysmal atrial fibrillation; D50.9 Iron deficiency anemia, unspecified; K25.9 Gastric ulcer, unspecified as acute or chronic, without hemorrhage or perforation; Z86.718 Personal history of other venous thrombosis and embolism; M32.9 Systemic lupus erythematosus, unspecified; Z79.01 Long term (current) use of anticoagulants; G89.4 Chronic pain syndrome; E03.9 Hypothyroidism, unspecified; Z99.81 Dependence on supplemental oxygen; F17.210 Nicotine dependence, cigarettes, uncomplicated
CPT/HCPCS: 36415; 36600; 71045; 71046; 71260; 80048; 80053; 81001; 82274; 82728; 82803; 83540; 83550; 83605; 83735; 83880; 84484; 85014; 85018; 85025; 85610; 85730; 87040; 87070; 87077; 87086; 87088; 87106; 87149; 87186; 87205; 87449; 87804; 93005; 93306; 94002; 94003; 94640; 94667; 94668; 97110; 97116; 97162; 97166; 97530; 97535; 99285; 99406; J1756; J7030; J7040; Q9967; A4216; J0696

== ENCOUNTER 2019-02-12 08:49 | Emergency (ER) | payer MEDICARE, SELFPAY ==
[2019-02-06 15:42] VITALS: BMI 33.7
[2019-02-12 08:50] VITALS: BP 169/73; PULSE 76; RESP 20; TEMP 36.8; O2SAT 94; BMI 32.8
--- NOTE | 2019-02-12 09:05 | ED.DCSUM_ITS ---
History of Present Illness Chief Complaint: Weakness Informant: Patient, Learning Specialist Onset: Today Narrative: Patient was just discharged yesterday from this hospital after being admitted for sepsis due to pneumonia, she had already been in assisted living prior to being admitted here, and after doing fairly well with physical therapy/Occupational Therapy, apparently was discharged back to assisted living, although physician progress notes recommended SNF. According to the same note, the patient resisted SNF disposition and wanted to go back to assisted living, which was done. She is at a facility that has different areas including senior living, and assisted living. She got up this morning, she felt very weak as she did yesterday when she was discharged, she ambulated to the bathroom but had significant trouble due to feeling weak and lightheaded, she feels nauseated, she has worsening wheezing/dyspnea with exertion, and her cough has been productive today with wolf sputum. No blood. She states she has no new symptoms today compared with how she felt yesterday. She has continued to smoke, albeit less than in the past, she states physicians thinks she may have COPD. She apparently is supposed to get a carotid endarterectomy soon as well. She has paperwork signed by her and her primary physician Dr. Sierra included with her ED visit this morning indicating that she is DNR-Comfort Care. I discussed this with her, she states she is aware. - Past Medical History (1) Atherosclerotic heart disease of [place] coronary artery without angina pectoris Status: Chronic (2) Chronic diastolic (congestive) heart failure Status: Chronic (3) Essential hypertension Status: Chronic (4) Hyperlipidemia Status: Chronic (5) Hypothyroidism Status: Chronic (6) PVD (peripheral vascular disease) Status: Chronic (7) Paroxysmal atrial fibrillation Status: Chronic (8) Peripheral neuropathy Status: Chronic (9) SLE (systemic lupus erythematosus) Status: Chronic (10) Spinal stenosis Status: Chronic Past Medical History - Allergies and Home Meds Allergies/Adverse Reactions: Allergies adhesive tape Allergy (Unknown, Verified 02/12/19 08:57) Unknown metoprolol [From Toprol XL] Allergy (Unknown, Verified 02/12/19 08:57) Unknown polymyxin B Allergy (Unknown, Verified 02/12/19 08:57) Unknown Sulfa (Sulfonamide Antibiotics) Allergy (Unknown, Verified 02/12/19 08:57) Swelling latex Allergy (Verified 02/12/19 08:57) Unknown Primary Care Physician: Juan Agee MD [Primary Care Provider] - Surgical History: coronary bypass surgery - Coronary artery bypass graft ?4 vessels in 2014, hysterectomy - For endometriosis, - - Multiple vascular procedures on her legs Smoking Status: Current some day smoker - Family History Maternal Family History: Family History (Last Reviewed 01/14/19 @ 11:22 by Johanny Smith) Father CVA (cerebral vascular accident) Hypertension Brother CVA (cerebral vascular accident) Family History: Reports: - - Hypertension, coronary artery disease, cerebrovascular disease with CVAs and diabetes mellitus and a niece Review of Systems General: Reports: Malaise. Denies: Chills, Fever Eyes: Denies: Visual changes - bilaterally, Diplopia ENT: Denies: Rhinorrhea, Sore throat Cardiovascular: Denies: Chest pain, Palpitations Respiratory: Reports: Dyspnea, Cough, Sputum, Dyspnea on exertion. Denies: Orthopnea Gastrointestinal: Reports: Nausea. Denies: Abdominal pain, Vomiting, Diarrhea, Melena, Hematochezia Genitourinary: Denies: Dysuria, Hematuria, Frequency Musculoskeletal: Reports: Extremity Pain - chronic BLE, unchanged. Denies: Back pain Skin: Denies: Rash, Wounds Neurological: Denies: Headache, Weakness, Numbness Psych: Reports: Depression. Denies: Suicidal thoughts Endocrine: Denies: Polyuria, Polydipsia, Heat intolerance, Cold intolerance Hematologic: Reports: Easy bruising, Easy bleeding Allergy: Denies: Uticaria, Swelling of the mouth, Swelling of the tongue Physical Exam Vital Signs/Narrative: Vital Signs Temp Pulse Resp BP Pulse Ox 02/12/19 08:50 98.2 F 76 20 H 169/73 H 94 Inital Vital Signs reviewed: Yes General: Well nourished, Well developed, No Acute Distress Head: Normocephalic, Atraumatic Eyes: Perrl, EOMI ENT: Moist mucous membranes, No rhinorrhea Neck: Supple, Nontender Cardiovascular: Regular rate, Regular rhythm, No murmurs. Negative for: Irregular Respiratory: No distress, Chest nontender, Rhonchi - few right base, low-pitched Abdomen: Soft, Nontender, Nondistended, Normal bowel sounds Back: Nontender, Normal Inspection Extremities: Nontender, Edema - trace pretibial BLE, symmetric. Negative for: Calf Tenderness Skin: Normal color, No rash, No Trauma Neurological: Alert, Oriented x3, Cranial nerves II-XII grossly intact, Normal Strength, Normal Sensation Psychological: Normal affect, Depressed Diagnostic/Tx/Re-eval - Medical Decision Making Patient is speaking in full sentences, her vital signs are stable and she is not hypoxic at 94% on a 2 L nasal cannula. She is in no distress. She does appear depressed, she had mental health counseling while in the hospital here. She is depressed about the fact that her [id number] would not help care for her and allow her to live with her, so she feels that she had no choice but to go to assisted living. I expressed the fact that she appears to need senior living, at least temporarily. She is in agreement with that at this time. I gave her an albuterol treatment and a dose of Zofran for her nausea. She is not tachycardic and does not sound like she is in atrial fibrillation at this time. She is anticoagulated on Xarelto and having no bleeding. Plan is to discuss with social work to see if we can get her into skilled this morning. Patient remained stable throughout her emergency department stay. We had social work see the patient and work with her in the facility, and we were able to obtain a skilled bed at the same facility. She will be discharged there. ED Disposition - Plan for ED Patient: Disposition: [facility] Facility Diagnosis: Debility, Pneumonia Instructions: WEAKNESS, Unk Cause Referrals: Juan Agee MD [Primary Care Provider] -
[2019-02-12] MEDS: Albuterol 2.5 MG/3 ML VIAL.NEB. INHALATION (09:22)
[2019-02-12] MEDS: Ondansetron ODT 4 MG Tablet 8 MG PO (09:22)
[2019-02-12 09:24] VITALS: PULSE 80; RESP 20
[2019-02-12 09:26] VITALS: TEMP 36.8
[2019-02-12 10:24] VITALS: BP 159/55; PULSE 62; RESP 16; TEMP 36.9; O2SAT 94
--- NOTE | 2019-02-12 10:53 | CM.ED ---
Social Work Consult: Discharge Planning Informant: Nursing staff Met with patient in room. Patient currently lives in the Assisted Living at [facility]. Patient with recent hospital stay, discharged from the hospital on 02/11/19. Patient stating to believe that patient needs some therapy before returning back to assisted living. Patient wanting to transition to [facility] under skilled services. This social contact worker communicating that this social contact worker will look into the possibility of patient being able to admit from the ED to [facility] skilled. Telephone call to Virginie New. This social contact worker making referral. Virginie wanting to look into some things and will call this social contact worker back, no clinical information faxed at this time. Edie Henderson ADJUSTMENT SUPERVISOR, SLY
[2019-02-12 11:19] VITALS: BP 131/48; PULSE 58; RESP 16; TEMP 37; O2SAT 97
[2019-02-12 11:51] VITALS: BP 131/48; PULSE 62; RESP 18; O2SAT 97
--- NOTE | 2019-02-12 12:02 | ED.RN ---
REPORT CALLED TO SNF
--- NOTE | 2019-02-12 12:07 | CM.ED ---
Social Work Telephone call from Virginie [facility]. Patient has been accepted to [facility] and pre-cert has been obtained with [facility]. Patient to discharge today to [facility]. Virginie stating to be able to complete the PASRR. Notified nursing staff, patient, and Dr. Nelson all agreeable to plan. Patient to discharge to [facility] skilled today. Edie Henderson PEAR PICKER, SLY
== END 2019-02-12 12:25 | disposition skilled nursing facility (03) ==
PROVIDERS: Emergency Provider Emergency Medicine; Family Provider Family Medicine; PCP Family Medicine
DX: J18.9 Pneumonia, unspecified organism (principal); R53.81 Other malaise; I25.10 Atherosclerotic heart disease of native coronary artery without angina pectoris; I11.0 Hypertensive heart disease with heart failure; I50.32 Chronic diastolic (congestive) heart failure; E78.5 Hyperlipidemia, unspecified; E03.9 Hypothyroidism, unspecified; I73.9 Peripheral vascular disease, unspecified; I48.0 Paroxysmal atrial fibrillation; G62.9 Polyneuropathy, unspecified; M32.9 Systemic lupus erythematosus, unspecified; M48.00 Spinal stenosis, site unspecified; F32.9 Major depressive disorder, single episode, unspecified; Z95.1 Presence of aortocoronary bypass graft; Z79.82 Long term (current) use of aspirin; Z79.02 Long term (current) use of antithrombotics/antiplatelets; Z79.01 Long term (current) use of anticoagulants; Z79.899 Other long term (current) drug therapy; F17.200 Nicotine dependence, unspecified, uncomplicated
CPT/HCPCS: 94640; 99284

== ENCOUNTER 2019-02-26 08:00 | Day surgery (SDC) | payer MEDICARE, SELFPAY ==
[2019-01-14 11:16] VITALS: BMI 33.4
--- NOTE | 2019-02-13 02:53 | HP_ITS ---
HPI HPI History of Present Illness Surgical H&P: Yes Details: RENUKA ROMO, is a 73 F who presents to the office today for outpatient cardiovascular follow-up. She has a history of coronary artery disease status post bypass surgery in November 2013 with an ELDRIDGE LAD, SVG to OM, and SVG to PDA. She also has a history of peripheral vascular disease with carotid artery stenosis, congestive heart failure, hypertension, and hyperlipidemia. Patient recently underwent a stress test on 02/01/2019. This was considered to be abnormal. Because of this, she will proceed with a left heart catheterization to further assess coronary anatomy. This will also help further guide Dr. Arauz, Vascular Surgeon, in regards to carotid endarterectomy. She denies chest, arm, jaw, or neck discomfort. Her exercise tolerance is stable. She denies symptoms of CHF, palpitations, lightheadedness, dizziness, near syncope, or syncopal episodes. She denies edema or claudication issues. She denies orthopnea, PND, fever, chills, blood in urine, blood in stool, or myalgia. She states generally feeling tired. Intake Vital Signs 02/13/19 Height 5 ft 5 in 02/13/19 Weight: 194 lb 02/13/19 Body Mass Index (BMI) 32.3 02/13/19 Blood Pressure 152/80 H 02/13/19 Blood Pressure Location Lt brachial 02/13/19 Respiratory Rate 16 02/13/19 Pulse Rate 73 02/13/19 Pulse Ox 97 02/13/19 Oxygen Delivery Method nasal canula 02/13/19 Oxygen Flow Rate (L/min) 2 Intake Visit Reasons: Update H & P for heart cath Tester Sound Required: No Accompanied by: none Is patient in pain?: Yes Allergies adhesive tape Allergy (Unknown, Verified 02/13/19 10:45) Unknown metoprolol [From Toprol XL] Allergy (Unknown, Verified 02/13/19 10:45) Unknown polymyxin B Allergy (Unknown, Verified 02/13/19 10:45) Unknown Sulfa (Sulfonamide Antibiotics) Allergy (Unknown, Verified 02/13/19 10:45) Swelling latex Allergy (Verified 02/13/19 10:45) Unknown [facility] History (Updated 02/13/19 @ 13:26 by OZZY Bro) Essential hypertension (Chronic) Chronic diastolic (congestive) heart failure (Chronic) Paroxysmal atrial fibrillation (Chronic) Atherosclerotic heart disease of [place] coronary artery without angina pectoris (Chronic) Peripheral neuropathy (Chronic) Hypothyroidism (Chronic) Hyperlipidemia (Chronic) SLE (systemic lupus erythematosus) (Chronic) Steroid dependence (Chronic) PVD (peripheral vascular disease) (Chronic) Spinal stenosis (Chronic) GERD (gastroesophageal reflux disease) (Acute) History of DVT (deep vein thrombosis) (Acute) Surgical History (Updated 02/06/19 @ 15:20 by Rich Roman MD) History of coronary artery bypass graft (Chronic ~11/2013) History of total hysterectomy (Resolved) S/P insertion of iliac artery stent (Resolved) Family History (Updated 03/20/18 @ 15:55 by Johanny Smith) Father CVA (cerebral vascular accident) Hypertension Brother CVA (cerebral vascular accident) Social History (Updated 02/13/19 @ 14:53 by Anatoliy Rowell GREENHOUSE ASSISTANT-C) Smoking Status: Current some day smoker alcohol intake: never substance use type: does not use ROS Const Const: Positive for fatigue; negative for weakness, body ache, fever(s) or chills ENT ENT: Negative for dizziness Cardio Chest Pain: No Palpitations: No Edema: None Muscle aches with walking: None Resp Respiratory: Negative for SOB with activity, SOB at rest, SOB orthopnea\SOB lying down or paroxysmal nocturnal dyspnea GI GI: Negative nausea, vomiting blood/hematemesis, bright, red blood in stools or black,tarry stools : Negative for hematuria or frequent nighttime urination/ nocturia Musc Musc: Negative for muscle aches/ myalgia Skin Skin: Negative non-healing lesions or rash Neuro Neuro: Negative for dizziness, lightheadedness, near syncope, syncope, orthostatic symptoms or weakness Endo Endo: Positive for fatigue Allergy Allergy/Immunology: Negative for rash Cardiology Exam Const Appearance: cooperative, healthy appearing, comfortable and no acute distress Nutritional Appearance: well nourished and obese Orientation: alert, awake and oriented x3 Head Head: normal to inspection Ears: hearing grossly normal bilaterally Nose: external nose normal Face and Sinus: face symmetric Mouth: oral mucosae normal Eyes General: appearance normal, both eyes and all related structures Eyelids: eyelids normal EOM: EOM intact bilaterally Neck Neck: normal visual inspection and no JVD Carotids: normal carotid upstroke Chest Chest inspection: normal inspection of the chest, symmetric chest movement and normal respiratory effort; negative cough Auscultation: Bilateral: Clear to Auscultation Cardio Rate: regular rate Rhythm: regular rhythm Heart sounds: S1 normal and S2 normal; negative rub, gallop or murmur GI GI: normal to inspection and obese Neuro General: alert, awake, oriented x3 and CN's II-XI intact bilaterally Skin Skin: no rashes or lesions noted Extremities Pulses: Normal: Right Posterior Tibial Pulse, Left Posterior Tibial Pulse, Right Radial Pulse, Left Radial Pulse Lower Extremity Edema: None: Bilateral Psych Psychological: normal affect Assessment & Plan 1. Atherosclerosis of [place] coronary artery of [place] heart without angina pectoris I25.10 Plan Because of her abnormal stress test on 02/01/2019 she will proceed with left heart catheterization for further evaluation. Based on results further recommendation will be made. 2. Hx of CABG Z95.1 CABG x4- ELDRIDGE to LAD, SVG to OM, SVG to PDA 12/11 Plan This will be reassessed with her upcoming heart catheterization. 3. Paroxysmal atrial fibrillation I48.0 Plan She appears to maintain regular rhythm based on exam. Her telemetry strips from recent hospitalization reviewed and appear to show sinus rhythm. She was asked to hold her Xarelto for approximately 4 days prior to heart catheterization. She will continue with current beta-caroline and digoxin. We will continue to monitor. 4. Chronic diastolic (congestive) heart failure I50.32 Plan Her most recent echocardiogram from January 2019 showed ejection fraction of 65%. She denies any shortness of breath or lower extremity edema. Her activity level, though minimal, has remained stable. She will continue with current beta-caroline and diuretic. We will continue to monitor. 5. Essential (primary) hypertension I10 Plan Her blood pressure slightly elevated today in office. It has been stable throughout her recent hospitalization. At this time, we will continue to monitor. Will follow closely and adjust medication accordingly. 6. Hyperlipidemia, unspecified hyperlipidemia type E78.5 Plan She will continue current statin medication. Plan Detail Additional Comments Patient is scheduled for a heart catheterization with Dr. Bennett on 02/26/2019. Thank you for allowing us to participate in the patients plan of care, if you have any questions please do not hesitate to call. This note was generated using a voice recognition system and there may be incorrect words, spelling or punctuation that were not noted when reviewing the office note prior to saving. Coding Level of Care Code Off vis,est,level 3 Diagnoses Atherosclerosis of [place] coronary artery of [place] heart without angina pectoris I25.10 ??[place] vs. transplanted heart: kiana heart Hx of CABG Z95.1 Paroxysmal atrial fibrillation I48.0 Chronic diastolic (congestive) heart failure I50.32 Essential (primary) hypertension I10 Hyperlipidemia, unspecified hyperlipidemia type E78.5 ??Hyperlipidemia type: unspecified Coding Level of Care Code Off vis,est,level 3 Diagnoses Atherosclerosis of [place] coronary artery of [place] heart without angina pectoris I25.10 ??[place] vs. transplanted heart: kiana heart Hx of CABG Z95.1 Paroxysmal atrial fibrillation I48.0 Chronic diastolic (congestive) heart failure I50.32 Essential (primary) hypertension I10 Hyperlipidemia, unspecified hyperlipidemia type E78.5 ??Hyperlipidemia type: unspecified Supplemental Info Supplemental Information Transthoracic echocardiogram: 02-07-2019 Interpretation Summary The study was technically difficult. Left ventricular systolic function is normal. The estimated ejection fraction is 65 %. The left atrium is mildly enlarged. There is mild mitral annular calcification. Extension of the mitral annular calcification onto the posterior mitral valve leaflet. Mild diffuse mitral valve thickening. Mild focal mitral valve calcification of the anterior leaflet. Mild-Moderate (1-2+) mitral valve insufficiency. Mild tricuspid valve insufficiency. Moderate focal aortic valve calcification. Calcified aortic root. Right ventricular systolic pressure estimated to be 42 mmHg. Unable to assess diastolic dysfunction. Comment: No obvious intracardiac mass lesion / thrombus identified. Consider further evaluation with COOPER if clinically indicated. Transesophageal echocardiogram: 12-04-13: [place], [place]: Left ventricle: LVEF of 50 to 55% Left atrium: No evidence of thrombus; no spontaneous contrast Right atrium: No evidence of thrombus Atrial septum: No defect or PFO; no atrial level shunt Mitral valve: No evidence of vegetation; mild regurgitation Stress test from 02/01/2019: Date: 02-01-19 Procedure: Pharmacologic stress nuclear imaging study Indications: CAD; CABG; paroxysmal atrial fibrillation; abnormal ECG; preoperative cardiovascular evaluation Consent: Per the patient Procedure: The patient underwent pharmacologic (Regadenoson) evaluation with a peak heart rate of 74 beats per minute (49 %predicted maximal heart rate) and a peak blood pressure of 158/88 mmHg. The baseline ECG demonstrated sinus rhythm; right bundle branch block pattern. The peak pharmacologic ECG demonstrated continued right bundle branch block pattern. There were no cardiac dysrhythmias pretest, during pharmacologic infusion, or recovery. There was no complaint of chest discomfort during pharmacologic infusion or recovery. The examination was discontinued secondary to completion of protocol. Impression: 1. Pharmacologic (Regadenoson) evaluation 2. Peak pharmacologic ECG with continued right bundle branch block pattern. 3. There were no cardiac dysrhythmias pretest, during pharmacologic infusion, or recovery. 4. Nuclear images pending Myocardial perfusion imaging study: Technique: The patient was injected with 14.5 millicuries of technetium 99m Cardiolite and subsequently rest SPECT Cardiolite nuclear imaging was obtained in the horizontal long, vertical long, and short axis views. The patient underwent pharmacologic (Regadenoson) evaluation with a peak heart rate of 74 beats per minute (49 % percent predicted maximal heart rate) and a peak blood pressure of 158/88 mmHg. The patient was injected with 44.2 millicuries of technetium 99m Cardiolite and subsequently stress SPECT Cardiolite nuclear imaging was obtained in the horizontal long, vertical long, and short axis views. A gated Cardiolite study at peak stress was obtained. Interpretation: Rest and stress SPECT Cardiolite nuclear imaging status post realignment, normalization, and attenuation correction demonstrate at rest relative uniform tracer uptake and status post stress a small area of diminished tracer uptake in the inferior apical areas. There are similar type findings on the stress Parmet images. There is end systolic thickening and brightening. The gated Cardiolite study demonstrates myocardial thickening and inward wall motion. The reported LVEF is 79 %. Impression: 1. Rest and stress SPECT cardiac nuclear imaging demonstrate myocardial perfusion changes appearing compatible with an area of stress-induced myocardial ischemia involving portions of the inferior apical segments. 2. The gated Cardiolite study reports an LVEF of 79 %. Cardiac catheterization: 12-03-13: [place], [place] Left ventricle: LVEF reported at 45 to 50% LAD: Mid vessel: 90% stenosis First OM: Proximal: 70% stenosis RCA: Proximal: 95% stenosis RCA: Mid: 100% stenosis Mitral valve: 3-4+ mitral valve regurgitation CAB12-10-13: [place], [place]: ELDRIDGE to the LAD; SVG to the OM; SVG to the PDA Diagnostics Electrocardiogram 02/06/19 Echocardiogram 02/07/19 Stress Test Nuclear Medicine 02/01/19 Stress Test 02/01/19 Chest X-Ray 02/13/19 02/13/19 9400 <Electronically signed by Anatoliy Pink> Date _ Anatoliy PRECIADO I have re-examined the patient. There are no clinical changes since date of exam.
[2019-02-13 10:42] VITALS: BMI 32.3
--- NOTE | 2019-02-13 11:48 | RAD_ITS ---
STUDY: X-RAY CHEST REASON FOR EXAM: Female, 73 years old. Short of breath. TECHNIQUE: Frontal and lateral views of the chest. COMPARISON: 02/08/2019 FINDINGS: There is hyperinflation of the lungs consistent with chronic obstructive lung disease (COPD). No definite infiltrates. Mild fibrotic changes in the lung bases, stable. Stable calcified granuloma in the right lung base. Stable linear density across the periphery of the mid right lung. No effusions. Normal size heart. Previous CABG. Normal mediastinum and elva. Normal visualized pulmonary arteries. Normal visualized aortic arch and descending thoracic aorta. There are diffuse degenerative changes of the visualized thoracic spine. There is degenerative osteoarthritis of the bilateral shoulders. There is no demonstrated abnormality of the visualized soft tissue structures of the upper abdomen. RAD/Chest PA and Lateral IMPRESSION: There are findings consistent with COPD. There is no change or evidence of acute chest disease. Electronically Signed: Matthias Barton MD at 16:59 EDT , Service support ,
[2019-02-13 17:11] LABS: Hemoglobin 11.8 g/dL (12.0-15.0); Mean Corp Hgb Conc 30.3 g/dL (32-36); Mean Corpuscular Hgb 24.2 pg (27.0-32.0); Mean Corpuscular Volume 80.1 fL (81-99); RBC Distribution Width CV 16.8 % (11.6-14.6); Red Blood Count 4.87 M/mm3 (4.2-5.4); White Blood Count 13.5 K/mm3 (4.4-11.0)
[2019-02-13 17:12] LABS: Mean Platelet Vol. 10.3 fl (6.2-12.0); Platelet Count 356 K/mm3 (150-450); RBC Distribution Width SD 46.8 fl (35.1-43.9)
[2019-02-13 17:13] LABS: International Normalized Ratio 1.1; Partial Thromboplast Time 30.3 Seconds (24.1-36.2); Prothrombin Time (Protime)PT. 14.4 SECONDS (11.7-14.9)
[2019-02-13 17:16] LABS: Anion Gap 5 (5-15); BUN 21 mg/dL (7-18); BUN/Creat Ratio 23.9 RATIO (10-20); Calcium,Total 9.7 mg/dL (8.5-10.1); Chloride 92 mmol/L (98-107); Creatinine, Serum 0.88 mg/dL (0.55-1.02); EST Glomerular Filtration Rate 67 mL/min (>60); Est Glom Filt Rate - Afr Amer 81 mL/min (>60); Glucose 174 mg/dL (74-106); Potassium 4.3 mmol/L (3.5-5.1); Sodium Level 134 mmol/L (136-145)
[2019-02-26 08:20] VITALS: BMI 32.3
--- NOTE | 2019-02-26 14:08 | CL.D_ITS ---
Patient Name: CUCO ROMO Study Date: 02/26/2019 Performing: Davy Bennett MD Ht: 66.14 inches 168 cm : 1945 Wt: 201.99 lbs 91.62 kg Age: 73 Gender: female BSA: 2.01 PROCEDURE(S) PERFORMED [id number]/LV/CABG CLINICAL PROFILE AND INDICATIONS Indications: Pre-Operative Evaluation Heart Failure: None Stress/Imaging Stress Test w/SPECT MPI: Yes Result: PositiveStress Test with SPECT MPI: Positive Angina Classification Anginal Classification w/in 2 Weeks: No symptoms CAD Presentations: Other: Dyspnea CONCLUSIONS Elevated Left Ventricular End Diastolic Pressure Segmented LV systolic dysfunction- Mild LVEF: by LV gram 60 % [place] Multivessel CAD ELDRIDGE to LAD: patent SVG to OM1: patent SVG to RCA: patent [place] coronary arteries distal to the graft attachments: patent with no angiographically significant appearing disease Mitral Valve Insufficiency Mild to Moderate RECOMMENDATIONS Risk factor modification Medical therapy DESCRIPTION OF PROCEDURE The patient arrived to the procedure lab. The risks and benefits of the procedure as well as a full d escription of our services here and current unavailability of surgical backup were fully explained to the patient and/or their significant other prior to the catheterization. The Timeout was completed, verifying the correct patient and procedure. The patient's procedural site was prepped and draped in the usual fashion. Local anesthetic was given subcutaneously to right groin region with Lidocaine 2%. Using a modified Seldinger technique, arterial access was obtained via the right femoral artery, a 4 Fr sheath was inserted Left Coronary Artery selective angiography was performed in multiple views us ing a 4 Fr. JL5 catheter. Right Coronary Artery selective angiography was then performed in multiple views using a 4 Fr. 3DRC catheter. Saphenous Vein graft to the OM 1 selective angiography was perform ed in multiple views using a 4 Fr. 3DRC catheter. Saphenous Vein graft to the RPDA selective angiography was performed in multiple views using a 4 Fr. 3DRC catheter. Left internal mamm temo artery graft to the LAD selective angiography was performed in multiple views using a 4 Fr. JR4 c atheter. Right Coronary Artery selective angiography was then performed in multiple views using a 4 F r. JR4 catheter. Left Ventriculography was performed in PEREZ projection using a 4 Fr. Pigtail catheter . LV to AO pullback pressures were then recorded.The arterial sheath was pulled and manual compressio n applied until hemostasis is achieved. CORONARY ANGIOGRAPHY DOMINANCE: Right Dominant LEFT HEART ASSESSMENT Left Ventricular Ejection Fraction: by LV Gram 60 % Inferior Basal Hypokinesis Elevated Left Ventricular End Diastolic Pressure LVEDP: 35 mmHg LEFT MAIN: Mild luminal irregularities, Distal: Eccentric: 25 % Stenosis LEFT ANTERIOR DESCENDING ARTERY: PROX LAD: Mild calcification, Mild luminal irregularities MID LAD: is occluded CIRCUMFLEX ARTERY: Mild luminal irregularities OM 1: Ostial - is occluded RAMUS: Mild calcification, Mild luminal irregularities RIGHT CORONARY ARTERY: PROX RCA: is occluded GRAFTS: ELDRIDGE graft to the Mid LAD is patent Saphenous Vein graft to the 1st OM is patent Saphenous Vein graft to the RCA is patent VALVE FINDINGS: Normal Aortic Valve function Mitral Valve Insufficiency - Grade 1 to Grade 2 COMPLICATIONS No Complications PROCEDURE MEDICATIONS Versed 1 mg IV Fentanyl 50 mcg IV Versed 1 mg IV Fentanyl 50 mcg IV Tylenol 325 mg PO 02/26/2019 11:48:41 SUMMARY OF HEMODYNAMIC DATA Time AIR REST ECG 08:23:06 AO 207/85 (132) SA 09:58:37 LV 197/11, 35 10:12:27 LV 205/2, 35 10:12:33 LV 206/2, 35 10:13:28 LVp 208/8, 38 10:13:32 AOp 201/73 (118) 10:13:37 ECG 10:45:09 ECG 10:55:49 Signed By Davy Bennett MD On 02/26/2019 2:08:31 PM Davy Bennett MD
== END 2019-02-26 15:05 | disposition home or self-care (01) ==
PROVIDERS: Family Provider Family Medicine; PCP Family Medicine; Referring Provider Internal Medicine Cardiovascular Disease; Visit Provider Internal Medicine Cardiovascular Disease
DX: I25.10 Atherosclerotic heart disease of native coronary artery without angina pectoris (principal); I34.0 Nonrheumatic mitral (valve) insufficiency; I48.0 Paroxysmal atrial fibrillation; I11.0 Hypertensive heart disease with heart failure; I50.32 Chronic diastolic (congestive) heart failure; E78.5 Hyperlipidemia, unspecified; G62.9 Polyneuropathy, unspecified; E03.9 Hypothyroidism, unspecified; M32.9 Systemic lupus erythematosus, unspecified; I73.9 Peripheral vascular disease, unspecified; M48.00 Spinal stenosis, site unspecified; K21.9 Gastro-esophageal reflux disease without esophagitis; I65.29 Occlusion and stenosis of unspecified carotid artery; Z86.718 Personal history of other venous thrombosis and embolism; Z95.1 Presence of aortocoronary bypass graft; Z79.02 Long term (current) use of antithrombotics/antiplatelets; Z79.01 Long term (current) use of anticoagulants; Z79.82 Long term (current) use of aspirin; Z79.899 Other long term (current) drug therapy; F17.200 Nicotine dependence, unspecified, uncomplicated
CPT/HCPCS: 36415; 71046; 80048; 85027; 85610; 85730; 93459; 99152; 99153; J7040; C1769; C1894; Q9967